=== PATIENT | male | born 1965 ===

== ENCOUNTER 2016-09-07 06:07 | Day surgery (SDC) | payer MEDICARE ==
[2016-09-07 06:34] VITALS: BMI 32.8
[2016-09-07] MEDS ORDERED: Propofol 10 mg/ml Inj (20 ML) ONE ×2 (07:52→10:07)
[2016-09-07] MEDS ORDERED: Lactated Ringer's 500 ML IV ONE (08:06)
--- NOTE | 2016-09-07 08:08 | CP.SDSHP ---
Same Day Surgery H & P - History Proposed Procedure: EGD/ COLONSCOPY Pre-Op Diagnosis: SEE NOTES - Previous Medical/Surgical History Cardiac: Hypertension Neuro: Backaches Misc: Other Pain: 4.Moderate Pain Previous Surgical History: COLON POLYPS - Allergies Allergies: Allergies No Known Allergies Allergy (Verified 09/07/16 08:01) - Physical Exam General Appearance: N Vital Signs: Vital Signs 09/07/16 06:48 Temperature 97.1 F L Pulse Rate 80 Respiratory 16 Rate Blood Pressure 121/77 O2 Sat by Pulse 97 Oximetry Mental Status: Alert & Oriented x3 Neuro: WNL Heart: Other Lungs: WNL GI: Other - {Optional Preform as Required} Breast: WNL Abdomen: Other Rectal: Other Integument: WNL : WNL Ortho: Other ENT: WNL - Impression Pt. Evaluated Today:Candidate for Anesthesia & Procedure: Yes - Date & Time Time: 08:07 Short Stay Discharge - Short Stay Discharge Admitting Diagnosis/Reason for Visit: COLON POLYP / DYSPEPSIA Disposition: HOME/ ROUTINE
[2016-09-07] MEDS ORDERED: Pantoprazole 40 mg EC Tab PO STA (08:13)
[2016-09-07] MEDS ORDERED: Belladonna-Phenobarbital PO STA (08:13)
[2016-09-07 09:30] VITALS: O2SAT 97
[2016-09-07] MEDS ORDERED: Midazolam 2 MG/2 ML VIAL ONE (10:07)
[2016-09-07] MEDS ORDERED: Lactated Ringer's 1,000 ML IV ONE (10:27)
[2016-09-07 15:26] VITALS: TEMP 98.9
[2016-09-08 14:39] VITALS: BP 132/72; PULSE 78; RESP 18
== END 2016-09-07 12:05 | disposition home or self-care (01) ==
LOC: C.ENDO 06:07
PROVIDERS: ATTEND Specialist
DX: K29.00 Acute gastritis without bleeding (principal); K21.0 Gastro-esophageal reflux disease with esophagitis; K44.9 Diaphragmatic hernia without obstruction or gangrene; K57.30 Diverticulosis of large intestine without perforation or abscess without bleeding; K63.89 Other specified diseases of intestine; K64.8 Other hemorrhoids; Z86.010 Personal history of colon polyps
CPT/HCPCS: 43239; 45380; 88305; J2001; J2250; J2704; J2765; J7120

== ENCOUNTER 2016-10-30 23:11 | Inpatient (IN) | payer MEDICARE, OTHER ==
[2016-10-30 23:12] VITALS: BMI 32.8
[2016-10-30] MEDS ORDERED: Sodium Chloride 0.9% 1,000 ML IV ONE (23:55)
--- NOTE | 2016-10-30 23:56 | C.PDOC ---
History Of Present Illness 51 year old male who presents to the ER with a complaint of bilateral leg pain. Patient reports he blacked out at home, he is also complaining of dizziness that he describes as a spinning sensation. Denies fever, chills, or vomiting. Chief Complaint (Nursing): Lower Extremity Problem/Injury History Per: Patient History/Exam Limitations: no limitations Onset/Duration Of Symptoms: Hrs Current Symptoms Are (Timing): Still Present Recent travel outside of the [place]: No Past Medical History Reviewed: Historical Data, Nursing Documentation, Vital Signs Vital Signs: Last Vital Signs Temp 98.7 F 10/30/16 23:18 Pulse 113 H 10/30/16 23:18 Resp 24 10/30/16 23:18 BP 124/78 10/30/16 23:18 Pulse Ox 94 L 10/31/16 02:09 - Medical History PMH: Arthritis, Back Problems, HTN, Hypercholesterolemia Surgical History: Appendectomy - [facility] Procedures ENDOSC POLYPECTOMY OF LG INTEST (09/25/14) Family History: States: [place], CAD, Hypertension - Social History Hx Tobacco Use: No Hx Alcohol Use: No - Immunization History Hx Tetanus Toxoid Vaccination: Yes Hx Influenza Vaccination: Yes Hx Pneumococcal Vaccination: Yes Review Of Systems Constitutional: Negative for: Fever, Chills Gastrointestinal: Negative for: Nausea, Vomiting Neurological: Positive for: Dizziness Physical Exam - Physical Exam Appears: Non-toxic, No Acute Distress, Other (Awake, alert, conscious) Skin: Normal Color, Warm, Dry Head: Atraumatic, Normacephalic Eye(s): bilateral: Normal Inspection, PERRL, EOMI Oral Mucosa: Moist Chest: Symmetrical, No Tenderness Cardiovascular: Rhythm Regular, No Murmur Respiratory: Normal Breath Sounds, No Rales, No Rhonchi, No Wheezing Gastrointestinal/Abdominal: Soft, No Tenderness Neurological/Psych: Oriented x3, Normal Speech, Normal Cognition, Other (No focal deficits) ED Course And Treatment - Laboratory Results Result Diagrams: 10/30/16 23:50 10/30/16 23:50 ECG: Interpreted By Me, Viewed By Me ECG Rhythm: Sinus Rhythm ECG Interpretation: Normal, No Acute Changes Interpretation Of ECG: NSR, normal tracings Rate From EC O2 Sat by Pulse Oximetry: 94 (Room air) Pulse Ox Interpretation: Normal - CT Scan/US CT Head Other Rad Studies (CT/US): Read By Radiologist, Radiology Report Reviewed CT/US Interpretation: EXAM: CT Head Without Intravenous Contrast. CLINICAL HISTORY: 51 years old, male; Pain; Headache. TECHNIQUE: Axial computed tomography images of the head/brain without intravenous contrast. This CT exam. was performed using one or more of the following dose reduction techniques: automated exposure. control, adjustment of the mA and/or kV according to patient size, and/or use of iterative. reconstruction technique. COMPARISON: No relevant prior studies available. FINDINGS: Brain: Minimal atrophy. No intracranial hemorrhage. No mass. No definite edema. Ventricles: No hydrocephalus. Bones/joints: No acute fracture. Soft tissues: Unremarkable. Sinuses: No acute sinusitis. Mastoid air cells: No mastoid effusion. Orbits: Unremarkable as visualized. IMPRESSION: 1. No acute intracranial abnormality. 2. Incidental/non-acute findings are described above. Progress Note: Head CT, EKG, and blood work ordered. Antivert and IV fluids administered. Disposition Discussed With Dr.: Milvia Kennedy Doctor Will See Patient In The: Hospital Counseled Patient/Family Regarding: Diagnosis - Disposition Disposition: HOSPITALIZED Disposition Time: 02:09 Condition: STABLE - POA Present On Arrival: None - Clinical Impression Clinical Impression: Syncope, Renal insufficiency syndrome - Scribe Statement The provider has reviewed the documentation as recorded by the Scribshane Lara All medical record entries made by the Mikaylaibshane were at my direction and personally dictated by me. I have reviewed the chart and agree that the record accurately reflects my personal performance of the history, physical exam, medical decision making, and the department course for this patient. I have also personally directed, reviewed, and agree with the discharge instructions and disposition.
[2016-10-31] MEDS ORDERED: Sodium Chloride 0.9% 1,000 ML ONE
[2016-10-31 00:09] LABS: BASO % 0.3 % (0.0-2.0); EOS % 0.3 % (0.0-4.0); HEMOGLOBIN 13.8 g/dL (12.0-18.0); LYMPH # 2.1 K/uL (1.0-4.3); LYMPH % 12.6 % (20.0-40.0); MEAN CELL VOLUME 88.2 fL (80.0-94.0); MEAN CORPUSCULAR HEMOGLOBIN 28.5 pg (27.0-31.0); MEAN CORPUSCULAR HGB CONC 32.4 g/dL (33.0-37.0); MEAN PLATELET VOLUME 8.1 fL (7.2-11.7); MONO # 1.8 K/uL (0.0-0.8); MONO % 10.8 % (0.0-10.0); NEUT # 12.5 K/uL (1.8-7.0); NRBC % 0.1 % (0.0-2.0); RBC 4.82 Mil/uL (4.40-5.90); RED CELL DISTRIBUTION WIDTH 13.9 % (11.5-14.5); WHITE BLOOD COUNT 16.4 K/uL (4.8-10.8)
[2016-10-31 00:18] LABS: ALB/GLOB RATIO 1.1 (1.0-2.1); ALBUMIN 4.3 g/dL (3.5-5.0); ALT/SGPT 37 U/L (21-72); AST/SGOT 34 U/L (17-59); BLOOD UREA NITROGEN 47 mg/dL (9-20); CALCIUM 8.6 mg/dl (8.6-10.4); GFR AFRICAN-AMERICAN 13; GFR NON-AFRICAN AMERICAN 10
--- NOTE | 2016-10-31 01:16 | CT ---
EXAM: CT Head Without Intravenous Contrast CLINICAL HISTORY: 51 years old, male; Pain; Headache TECHNIQUE: Axial computed tomography images of the head/brain without intravenous contrast. This CT exam was performed using one or more of the following dose reduction techniques: automated exposure control, adjustment of the mA and/or kV according to patient size, and/or use of iterative reconstruction technique. COMPARISON: No relevant prior studies available. FINDINGS: Brain: Minimal atrophy. No intracranial hemorrhage. No mass. No definite edema. Ventricles: No hydrocephalus. Bones/joints: No acute fracture. Soft tissues: Unremarkable. Sinuses: No acute sinusitis. Mastoid air cells: No mastoid effusion. Orbits: Unremarkable as visualized. IMPRESSION: 1. No acute intracranial abnormality. 2. Incidental/non-acute findings are described above.
[2016-10-31] MEDS ORDERED: Morphine 60 mg SR Tab PO PRN ×2 (03:04→07:14)
[2016-10-31 07:26] LABS: CK-MB 2.35 ng/mL (0.0-3.38)
[2016-10-31] MEDS ORDERED: Morphine 30 mg SR Tab PO ONE (07:30)
[2016-10-31] MEDS ORDERED: Naproxen 550 mg Tab PO SCH (10:00)
[2016-10-31] MEDS ORDERED: Home Med 1 UNIT (Lubiprostone [Amitiza] 24 MCG) PO SCH ×2 (10:00)
[2016-10-31] MEDS ORDERED: Home Med 1 UNIT (Ranitidine Hcl [Ranitidine Hcl] 150 MG) PO SCH (10:00)
[2016-10-31] MEDS ORDERED: SULINDAC 200 MG PO SCH (10:00)
[2016-10-31] MEDS ORDERED: Enoxaparin 40 mg Syringe SC SCH (10:00)
[2016-10-31] MEDS: Pantoprazole 40 mg EC Tab PO SCH (10:30)
[2016-10-31] MEDS: Sodium Chloride 0.9% 1,000 ML IV SCH ×2 (11:38→22:15)
--- NOTE | 2016-10-31 12:30 | CP.PCM.HP ---
Past Patient History - Past Medical History & Family History Past Medical History?: Yes - Past Social History Smoking Status: Never Smoked - CARDIAC Hx Hypercholesterolemia: Yes Hx Hypertension: Yes - PULMONARY Hx Respiratory Disorders: No - NEUROLOGICAL Hx Neurological Disorder: No - HEENT Hx HEENT Problems: No - RENAL Hx Chronic Kidney Disease: No - ENDOCRINE/METABOLIC Hx Endocrine Disorders: No - HEMATOLOGICAL/ONCOLOGICAL Hx Blood Disorders: Yes Hx Hepatitis C: Yes - INTEGUMENTARY Hx Dermatological Problems: No - MUSCULOSKELETAL/RHEUMATOLOGICAL Hx Falls: Yes - GASTROINTESTINAL Hx Gastrointestinal Disorders: Yes Hx Gastroesophageal Reflux: Yes Hx Hemorrhoids: Yes - GENITOURINARY/GYNECOLOGICAL Hx Genitourinary Disorders: No - PSYCHIATRIC Hx Substance Use: No - SURGICAL HISTORY Hx Appendectomy: Yes - ANESTHESIA Hx Anesthesia: Yes Hx Anesthesia Reactions: No Hx Malignant Hyperthermia: No Meds Allergies/Adverse Reactions: Allergies Allergy/AdvReac Type Severity Reaction Status Date / Time No Known Allergies Allergy Verified 10/30/16 23:22 Physical Exam - Constitutional Appears: Well - Head Exam Head Exam: ATRAUMATIC, NORMAL INSPECTION, NORMOCEPHALIC - Eye Exam Eye Exam: EOMI, Normal appearance, PERRL Pupil Exam: NORMAL ACCOMODATION, PERRL - ENT Exam ENT Exam: Mucous Membranes Moist, Normal Exam - Neck Exam Neck exam: Positive for: Normal Inspection - Respiratory Exam Respiratory Exam: Decreased Breath Sounds - Cardiovascular Exam Cardiovascular Exam: REGULAR RHYTHM, +S1, +S2 - GI/Abdominal Exam GI & Abdominal Exam: Diminished Bowel Sounds, Soft - Rectal Exam Rectal Exam: Deferred Results - Vital Signs Recent Vital Signs: Last Vital Signs Temp 97.5 F L 10/31/16 08:46 Pulse 86 10/31/16 08:46 Resp 18 10/31/16 08:46 BP 115/70 10/31/16 08:46 Pulse Ox 98 10/31/16 08:46 - Labs Result Diagrams: 10/30/16 23:50 10/30/16 23:50 Labs: Laboratory Results - last 24 hr 10/31/16 06:54 Total Creatine Kinase 151 CK-MB (Mass) 2.35 Troponin I, Quant < 0.0120
--- NOTE | 2016-10-31 12:58 | CARD ---
APPROVED REPORT EKG Measurement Heart [id number] ME [id number] [id number] <Conclusion> Normal sinus rhythm Normal ECG
[2016-10-31] MEDS ORDERED: Morphine 15 mg Immediate Release Tab PO PRN (16:00)
[2016-10-31] MEDS ORDERED: Naproxen 550 mg Tab PO PRN (16:00)
--- NOTE | 2016-10-31 16:51 | CP.PCM.CON ---
History of Present Illness - History of Present Illness History of Present Illness: CC: dizziness and LE weakness and chest discomfort HPI:51-year-old male with past medical history significant for traumatic injury to the back while he was working in [place] he subsequently had a traumatic injury to the cervical spine and has been on disability since then this was back in 1998 history of ulcerative colitis followed by GI. Patient presented with complains of symptoms of persistent recurrent dizziness and lower extremity weakness for a week prior to presentation he had a syncopal episode a day before this presentation. He denied having any chest pain shortness of breath palpitations dizziness. He was noted to have acute renal failure. At baseline he is fairly active denies any ischemic symptoms. He also complained of having a vague chest wall discomfort accompanied with mild shortness of breath and lower extremity weakness. Chest pain nonspecific in nature. Review of Systems - Review of Systems All systems: reviewed and no additional remarkable complaints except - Constitutional Constitutional: As Per HPI, Malaise - EENT Eyes: As Per HPI Ears: As Per HPI Nose/Mouth/Throat: As Per HPI - Cardiovascular Cardiovascular: Lightheadedness - Respiratory Respiratory: As Per HPI - Gastrointestinal Gastrointestinal: As Per HPI - Integumentary Integumentary: As Per HPI - Neurological Neurological: Weakness - Psychiatric Psychiatric: As Per HPI - Endocrine Endocrine: As Per HPI - Hematologic/Lymphatic Hematologic: As Per HPI Past Patient History - Past Medical History & Family History Past Medical History?: Yes Past Family History: Reviewed and not pertinent Pertinent Family History: +ve for HTN - Dad - Past Social History Smoking Status: Never Smoked - CARDIAC Hx Cardiac Disorders: No Hx Hypercholesterolemia: Yes Hx Hypertension: Yes - PULMONARY Hx Respiratory Disorders: No - NEUROLOGICAL Hx Neurological Disorder: No - HEENT Hx HEENT Problems: No - RENAL Hx Chronic Kidney Disease: No - ENDOCRINE/METABOLIC Hx Endocrine Disorders: No - HEMATOLOGICAL/ONCOLOGICAL Hx Blood Disorders: Yes Hx Hepatitis C: Yes - INTEGUMENTARY Hx Dermatological Problems: No - MUSCULOSKELETAL/RHEUMATOLOGICAL Hx Arthritis: Yes - GASTROINTESTINAL Hx Gastrointestinal Disorders: Yes Hx Gastroesophageal Reflux: Yes Hx Hemorrhoids: Yes - GENITOURINARY/GYNECOLOGICAL Hx Genitourinary Disorders: No - PSYCHIATRIC Hx Substance Use: No - SURGICAL HISTORY Hx Appendectomy: Yes - ANESTHESIA Hx Anesthesia: Yes Hx Anesthesia Reactions: No Hx Malignant Hyperthermia: No Meds Allergies/Adverse Reactions: Allergies Allergy/AdvReac Type Severity Reaction Status Date / Time No Known Allergies Allergy Verified 10/30/16 23:22 - Medications Medications: Current Medications Alprazolam (Xanax) 1 mg PO BID [facility] Last Admin: 10/31/16 10:30 Dose: 1 mg Aspirin (Aspirin Chewable) 81 mg PO DAILY [facility] Last Admin: 10/31/16 10:30 Dose: 81 mg Enoxaparin Sodium (Lovenox) 30 mg SC DAILY [facility] Sodium Chloride (Sodium Chloride 0.9%) 1,000 mls @ 100 mls/hr IV .Q10H [facility] Last Admin: 10/31/16 11:38 Dose: 100 mls/hr Lisinopril (Zestril) 10 mg PO DAILY [facility] Last Admin: 10/31/16 10:30 Dose: 10 mg Morphine Sulfate (Ms Contin) 30 mg PO Q8H PRN PRN Reason: Pain, severe (8-10) Naproxen (Anaprox Ds) 550 mg PO BID PRN PRN Reason: Pain, severe (8-10) Pantoprazole Sodium (Protonix Ec Tab) 40 mg PO DAILY [facility] Last Admin: 10/31/16 10:30 Dose: 40 mg Physical Exam - Constitutional Appears: Well - Head Exam Head Exam: ATRAUMATIC, NORMAL INSPECTION, NORMOCEPHALIC - Eye Exam Eye Exam: EOMI, Normal appearance, PERRL Pupil Exam: NORMAL ACCOMODATION, PERRL - ENT Exam ENT Exam: Mucous Membranes Moist, Normal Exam - Neck Exam Neck exam: Positive for: Normal Inspection - Respiratory Exam Respiratory Exam: Clear to Auscultation Bilateral, NORMAL BREATHING PATTERN - Cardiovascular Exam Cardiovascular Exam: REGULAR RHYTHM, +S1, +S2, Systolic Murmur - GI/Abdominal Exam GI & Abdominal Exam: Normal Bowel Sounds, Soft. absent: Tenderness - Rectal Exam Rectal Exam: Deferred - Extremities Exam Extremities exam: Positive for: normal inspection - Back Exam Back exam: NORMAL INSPECTION - Neurological Exam Neurological exam: Alert, CN II-XII Intact, Normal Gait, Oriented x3, Reflexes Normal - Psychiatric Exam Psychiatric exam: Normal Affect, Normal Mood - Skin Skin Exam: Dry, Intact, Normal Color, Warm Results - Vital Signs Recent Vital Signs: Last Vital Signs Temp 97.8 F 10/31/16 15:57 Pulse 78 10/31/16 15:57 Resp 18 10/31/16 15:57 BP 117/72 10/31/16 15:57 Pulse Ox 98 10/31/16 15:57 - Labs Result Diagrams: 11/01/16 06:43 11/01/16 06:43 Labs: Laboratory Results - last 24 hr 10/31/16 06:54 Total Creatine Kinase 151 CK-MB (Mass) 2.35 Troponin I, Quant < 0.0120 Assessment & Plan (1) Syncope Assessment and Plan: etiology ? 2' to preload dependency check IVF hydration and orthostatics check echocardiogram monitor on telemetry Status: Acute (2) Chest discomfort Assessment and Plan: will need further evaluation post echo MUKUND telmetry Status: Acute (3) Renal insufficiency syndrome Assessment and Plan: hold ACEi IVF hydration nephro eval Status: Acute
[2016-10-31 17:55] LABS: CK-MB 1.49 ng/mL (0.0-3.38)
[2016-10-31] MEDS: Enoxaparin 30 mg Syringe SC SCH (18:20)
[2016-10-31] MEDS: Naproxen 550 mg Tab PO PRN (18:20)
[2016-11-01 07:12] LABS: ALBUMIN 3.4 g/dL (3.5-5.0)
[2016-11-01 07:14] LABS: BASO % 0.2 % (0.0-2.0); EOS # 0.1 K/uL (0.0-0.7); EOS % 0.4 % (0.0-4.0); HEMOGLOBIN 12.7 g/dL (12.0-18.0); LYMPH % 14.2 % (20.0-40.0); MEAN CELL VOLUME 89.4 fL (80.0-94.0); MEAN CORPUSCULAR HEMOGLOBIN 28.3 pg (27.0-31.0); MEAN CORPUSCULAR HGB CONC 31.7 g/dL (33.0-37.0); MEAN PLATELET VOLUME 8.1 fL (7.2-11.7); MONO # 1.5 K/uL (0.0-0.8); MONO % 10.6 % (0.0-10.0); NEUT # 10.3 K/uL (1.8-7.0); NEUT % 74.6 % (50.0-75.0); RBC 4.49 Mil/uL (4.40-5.90); RED CELL DISTRIBUTION WIDTH 14.2 % (11.5-14.5); WHITE BLOOD COUNT 13.8 K/uL (4.8-10.8)
[2016-11-01 07:16] LABS: CALCIUM 8.4 mg/dl (8.6-10.4)
[2016-11-01] MEDS: Enoxaparin 30 mg Syringe SC SCH (09:00)
[2016-11-01] MEDS: Pantoprazole 40 mg EC Tab PO SCH (09:01)
[2016-11-01] MEDS: Sodium Chloride 0.9% 1,000 ML IV SCH ×3 (09:17→22:25)
--- NOTE | 2016-11-01 09:56 | CT ---
PROCEDURE: CT Abdomen and Pelvis without intravenous contrast HISTORY: vomitting COMPARISON: Prior abdomen pelvis CT 09/25/2014. TECHNIQUE: Technique. Contrast Dose: 0 cc Radiation dose: Total exam DLP = 1027 mGy-cm. This CT exam was performed using one or more of the following dose reduction techniques: Automated exposure control, adjustment of the mA and/or kV according to patient size, and/or use of iterative reconstruction technique. FINDINGS: LOWER THORAX: Mild cardiomegaly and an elevated right hemidiaphragm. LIVER: No focal lesion identified on this unenhanced examination. GALLBLADDER AND BILE DUCTS: Unremarkable. PANCREAS: Unremarkable. No gross lesion or ductal dilatation. SPLEEN: Unremarkable. ADRENALS: Unremarkable. No mass. KIDNEYS AND URETERS: Unremarkable. No hydronephrosis. No significant perinephric reaction bilaterally. VASCULATURE: Unremarkable. No aortic aneurysm. BOWEL: Seven appears largely collapsed. Mild to moderate fecal loading is seen throughout the colon and thoracic greater than the left. Limited sigmoid diverticular change are appreciate which appear nonacute. Unremarkable. No obstruction. No gross mural thickening. APPENDIX: Unremarkable. Normal appendix. PERITONEUM: Unremarkable. No free fluid. No free air. LYMPH NODES: Unremarkable. No enlarged lymph nodes. BLADDER: Unremarkable. REPRODUCTIVE: Unremarkable. BONES: Advanced degenerative disease L4-5. OTHER FINDINGS: Trace gas identified in the subcutaneous fat and fat of the right flank anterior abdominal wall. Consider recent instrumentation. IMPRESSION: Unenhanced and pelvis CT fails demonstrate definitive acute abdominal findings including bilateral hydronephrosis or significant perinephric reaction. [id number] fecal loading is seen throughout the large bowel without bowel obstruction evident.
[2016-11-01] MEDS ORDERED: Enoxaparin 30 mg Syringe SC SCH (10:00)
[2016-11-01] MEDS ORDERED: Bisacodyl 5mg EC Tab PO ONE (13:08)
--- NOTE | 2016-11-01 16:16 | VASCLAB ---
PROCEDURE: Lower Extremity Venous Duplex Exam. HISTORY: Leg pain PRIORS: None. TECHNIQUE: Bilateral common femoral, femoral, popliteal and posterior tibial, peroneal and great saphenous veins were evaluated. Flow was assessed with color Doppler, compressibility, assessment of phasic flow and augmentation response. Report prepared by HANNAH Donahue, RVT FINDINGS: RIGHT: 1. Common Femoral Vein: 1.1. Compressibility - Fully compressible: Thrombus - None : Flow - Phasic: Augmentation -Normal: Reflux - None. 2. Femoral Vein: 2.1. Compressibility - Fully compressible: Thrombus - None : Flow - Phasic: Augmentation -Normal: Reflux - None. 3. Popliteal Vein: 3.1. Compressibility - Fully compressible: Thrombus - None : Flow - Phasic: Augmentation -Normal: Reflux - None. 4. Posterior Tibial Vein: 4.1. Compressibility - Fully compressible: Thrombus - None: Flow - Phasic: Augmentation -Normal: Reflux - None. 5. Peroneal Vein: 5.1. Compressibility - Fully compressible: Thrombus - None: Flow - Phasic: Augmentation -Normal: Reflux - None. 6. Great Saphenous Vein: 6.1. Compressibility - Fully compressible: Thrombus - None: Flow - Phasic: Augmentation - Normal: Reflux - None. LEFT: 1. Common Femoral Vein: 1.1. Compressibility - Fully compressible: Thrombus - None: Flow - Phasic: Augmentation -Normal: Reflux - None. 2. Femoral Vein: 2.1. Compressibility - Fully compressible: Thrombus - None: Flow - Phasic: Augmentation -Normal: Reflux - None. 3. Popliteal Vein: 3.1. Compressibility - Fully compressible: Thrombus - None : Flow - Phasic: Augmentation -Normal: Reflux - None. 4. Posterior Tibial Vein: 4.1. Compressibility - Fully compressible: Thrombus - None: Flow - Phasic: Augmentation -Normal: Reflux - None. 5. Peroneal Vein: 5.1. Compressibility - Fully compressible: Thrombus - None: Flow - Phasic: Augmentation -Normal: Reflux - None. 6. Great Saphenous Vein: 6.1. Compressibility - Fully compressible: Thrombus - None: Flow - Phasic: Augmentation - Normal: Reflux - None. OTHER FINDINGS: Right: None significant. Left: None significant. IMPRESSION: Right: No evidence of deep or superficial vein thrombosis of the right lower extremity. Normal valve function noted of the right side. Left: No evidence of deep or superficial vein thrombosis of the left lower extremity. Normal valve function noted of the left side.
--- NOTE | 2016-11-01 18:07 | CP.PCM.PN ---
Subjective - Date & Time of Evaluation Date of Evaluation: 11/01/16 Time of Evaluation: 15:20 - Subjective Subjective: clinically same Objective - Vital Signs/Intake and Output Vital Signs (last 24 hours): Temp Pulse Resp BP Pulse Ox 98.3 F 69 18 122/67 96 11/01/16 16:00 11/01/16 16:00 11/01/16 16:00 11/01/16 16:00 11/01/16 16:00 Intake and Output: 11/01/16 11/01/16 06:59 18:59 Intake Total 2020 1850 Output Total 1800 150 Balance 220 1700 - Medications Medications: Current Medications Alprazolam (Xanax) 0.5 mg PO TID PRN PRN Reason: Anxiety Aspirin (Aspirin Chewable) 81 mg PO DAILY [facility] Last Admin: 11/01/16 09:01 Dose: Not Given Enoxaparin Sodium (Lovenox) 30 mg SC DAILY [facility] Last Admin: 11/01/16 09:00 Dose: 30 mg Famotidine (Pepcid) 20 mg IVP DAILY [facility] Last Admin: 11/01/16 13:05 Dose: 20 mg Sodium Chloride (Sodium Chloride 0.9%) 1,000 mls @ 100 mls/hr IV .Q10H [facility] Last Admin: 11/01/16 09:17 Dose: 100 mls/hr Lisinopril (Zestril) 10 mg PO DAILY [facility] Last Admin: 11/01/16 09:02 Dose: Not Given Metoclopramide HCl (Reglan) 5 mg IVP Q6 [facility] Morphine Sulfate (Morphine Immediate Release Tab) 30 mg PO Q8H PRN PRN Reason: Pain, severe (8-10) Naproxen (Anaprox Ds) 550 mg PO BID PRN PRN Reason: Pain, moderate (4-7) Last Admin: 10/31/16 18:20 Dose: 550 mg Pantoprazole Sodium (Protonix Ec Tab) 40 mg PO DAILY [facility] Last Admin: 11/01/16 09:01 Dose: Not Given - Labs Labs: 11/01/16 06:43 11/01/16 06:43 - Constitutional Appears: Well - Head Exam Head Exam: ATRAUMATIC, NORMAL INSPECTION, NORMOCEPHALIC - Eye Exam Eye Exam: EOMI, Normal appearance, PERRL Pupil Exam: NORMAL ACCOMODATION, PERRL - ENT Exam ENT Exam: Mucous Membranes Moist, Normal Exam - Neck Exam Neck Exam: Full ROM, Normal Inspection. absent: Lymphadenopathy - Respiratory Exam Respiratory Exam: Decreased Breath Sounds - Cardiovascular Exam Cardiovascular Exam: REGULAR RHYTHM, +S1, +S2 - GI/Abdominal Exam GI & Abdominal Exam: Soft, Diminished Bowel Sounds - Rectal Exam Rectal Exam: Deferred
[2016-11-01] MEDS: Naproxen 550 mg Tab PO PRN (18:14)
--- NOTE | 2016-11-01 19:13 | PN ---
DATE: 10/31/2016 LOCATION: 3, bed 10. SUBJECTIVE: This is a 51-year-old male seen and examined in rounds for GI consultation on 10/31/2016 as requested by the admitting MD, reexamined again today with a complaint of abdominal pain, dyspepsia, right lower quadrant as well as right lower extremities pain on and off. The entire chart is reviewed including but not limited to the most recent lab and radiology study results, current and previous medication list, current and previous medical events. Today, white blood cells 13.8 but normal hemoglobin and hematocrit with BUN 30 but normal creatinine with low calcium of 8.4. The patient had abdominal and pelvic CAT scan as directed by myself today, which was reported to be positive for bilateral hydronephrosis, but [id number] fecal impaction throughout the large bowel without evidence of obstruction. The patient also had CAT scan of the head, which reported to be within normal limit. PHYSICAL EXAMINATION: GENERAL: A 51-year-old male, appeared to be awake, alert, oriented. VITAL SIGNS: Afebrile with pulse of 74, respiratory rate 20 to 22, his blood pressure 120/68. HEENT: Showed pale, dry oral mucous membrane. Nonicteric sclerae. LUNG: Few scattered crepitation. Decreased air entry at bases. HEART: Positive S1 and S2. ABDOMEN: Soft, bowel sounds are present with generalized tenderness. No mass or organomegaly. No rebound tenderness or guarding. RECTAL: Positive stool, vault is empty. EXTREMITIES: With reported right *------* mild muscular tenderness. IMPRESSION: 1. Re-exacerbation of peptic ulcer disease. 2. Known history of osteoarthritis, chronic lower back pain syndrome, hyperlipidemia and hypertension by history. 3. Fecal impaction. 4. Status post vasectomy by history. SUGGESTIONS: 1. Continue current management. 2. Reglan IV due to the patient episodes of nausea and dyspepsia. 3. Upper endoscopy at a.m. 4. Consult *------* 5. Dulcolax and/or citrate of magnesium. 4. Endoscopic evaluation of the lower GI tract on as needed. 5. Further recommendation to follow. María Gregorio MD
--- NOTE | 2016-11-02 00:03 | CP.PCM.PN ---
Subjective - Date & Time of Evaluation Date of Evaluation: 11/01/16 Time of Evaluation: 16:00 - Subjective Subjective: dizziness mildly improving echo pending LE venous duplex -ve renal function improving Objective - Vital Signs/Intake and Output Vital Signs (last 24 hours): Temp Pulse Resp BP Pulse Ox 98.3 F 69 18 122/67 96 11/01/16 16:00 11/01/16 16:00 11/01/16 16:00 11/01/16 16:00 11/01/16 16:00 Intake and Output: 11/01/16 11/02/16 18:59 06:59 Intake Total 1850 Output Total 150 Balance 1700 - Medications Medications: Current Medications Alprazolam (Xanax) 0.5 mg PO TID PRN PRN Reason: Anxiety Aspirin (Aspirin Chewable) 81 mg PO DAILY [facility] Last Admin: 11/01/16 09:01 Dose: Not Given Enoxaparin Sodium (Lovenox) 30 mg SC DAILY [facility] Last Admin: 11/01/16 09:00 Dose: 30 mg Famotidine (Pepcid) 20 mg IVP DAILY [facility] Last Admin: 11/01/16 13:05 Dose: 20 mg Sodium Chloride (Sodium Chloride 0.9%) 1,000 mls @ 100 mls/hr IV .Q10H [facility] Last Admin: 11/01/16 22:25 Dose: 100 mls/hr Lisinopril (Zestril) 10 mg PO DAILY [facility] Last Admin: 11/01/16 09:02 Dose: Not Given Metoclopramide HCl (Reglan) 5 mg IVP Q6 [facility] Last Admin: 11/01/16 18:11 Dose: 5 mg Morphine Sulfate (Morphine Immediate Release Tab) 30 mg PO Q8H PRN PRN Reason: Pain, severe (8-10) Naproxen (Anaprox Ds) 550 mg PO BID PRN PRN Reason: Pain, moderate (4-7) Last Admin: 11/01/16 18:14 Dose: 550 mg Pantoprazole Sodium (Protonix Ec Tab) 40 mg PO DAILY [facility] Last Admin: 11/01/16 09:01 Dose: Not Given - Labs Labs: 11/01/16 06:43 11/01/16 06:43 - Constitutional Appears: Well - Head Exam Head Exam: ATRAUMATIC, NORMAL INSPECTION, NORMOCEPHALIC - Eye Exam Eye Exam: EOMI, Normal appearance, PERRL Pupil Exam: NORMAL ACCOMODATION, PERRL - ENT Exam ENT Exam: Mucous Membranes Moist, Normal Exam - Neck Exam Neck Exam: Full ROM, Normal Inspection. absent: Lymphadenopathy - Respiratory Exam Respiratory Exam: Clear to Ausculation Bilateral, NORMAL BREATHING PATTERN - Cardiovascular Exam Cardiovascular Exam: REGULAR RHYTHM, +S1, +S2, Murmur - GI/Abdominal Exam GI & Abdominal Exam: Soft, Normal Bowel Sounds. absent: Tenderness - Extremities Exam Extremities Exam: Full ROM, Normal Capillary Refill, Normal Inspection. absent : Joint Swelling, Pedal Edema - Back Exam Back Exam: NORMAL INSPECTION - Neurological Exam Neurological Exam: Alert, Awake, CN II-XII Intact, Normal Gait, Oriented x3 - Psychiatric Exam Psychiatric exam: Normal Affect, Normal Mood - Skin Skin Exam: Dry, Intact, Normal Color, Warm Assessment and Plan (1) Syncope Assessment & Plan: etiology ? 2' to dehydration and preload dependency cont with IVF hydration echo pending will consider ischemic w/u depending on results of echo Status: Acute (2) Chest discomfort Assessment & Plan: plan for stress test monitor on telemetry etiology most likely non-cardiac Status: Acute (3) Renal insufficiency syndrome Assessment & Plan: improving most likely prerenal cont with IVF hydration Status: Acute
[2016-11-02] MEDS: Sodium Chloride 0.9% 1,000 ML IV SCH (02:19)
[2016-11-02 07:23] LABS: BASO % 0.3 % (0.0-2.0); EOS # 0.1 K/uL (0.0-0.7); EOS % 0.6 % (0.0-4.0); HEMOGLOBIN 12.9 g/dL (12.0-18.0); LYMPH # 1.9 K/uL (1.0-4.3); LYMPH % 18.9 % (20.0-40.0); MEAN CELL VOLUME 87.6 fL (80.0-94.0); MEAN CORPUSCULAR HEMOGLOBIN 29.5 pg (27.0-31.0); MEAN CORPUSCULAR HGB CONC 33.7 g/dL (33.0-37.0); MEAN PLATELET VOLUME 7.7 fL (7.2-11.7); MONO # 0.9 K/uL (0.0-0.8); MONO % 8.8 % (0.0-10.0); NEUT % 71.4 % (50.0-75.0); RBC 4.38 Mil/uL (4.40-5.90); RED CELL DISTRIBUTION WIDTH 13.9 % (11.5-14.5); WHITE BLOOD COUNT 9.8 K/uL (4.8-10.8)
[2016-11-02 07:37] LABS: ALBUMIN 3.4 g/dL (3.5-5.0)
[2016-11-02 07:40] LABS: ALB/GLOB RATIO 1.2 (1.0-2.1); ALT/SGPT 26 U/L (21-72); AST/SGOT 12 U/L (17-59); BLOOD UREA NITROGEN 16 mg/dL (9-20); GFR AFRICAN-AMERICAN > 60; GFR NON-AFRICAN AMERICAN > 60
[2016-11-02 07:41] LABS: CALCIUM 8.6 mg/dl (8.6-10.4)
--- NOTE | 2016-11-02 08:05 | CON ---
DATE: 10/31/2016 HISTORY OF PRESENT ILLNESS: I was called for a GI consultation by the admitting medical team. The patient is seen and fully examined on 10/31/2016 as requested by the admitting medical staff as well as the patient himself as the patient had been my private patient for several years. The entire chart is reviewed including, but not limited to the most recent lab and radiologist's results. Current and previous medication list and current and previous medical events, allergies to the medications list as well as all the available current and previous medical records. Case discussed with the staff at length. This is a 51-year-old man known case for me from previous admissions as well as office visits for several years. He was admitted to the hospital through the emergency room with a complaint of generalized weakness and malaise, dizziness with bilateral lower extremities pain and tingling associated with dyspepsia, nausea, and generalized weakness as well as recent history of change of bowel movement habit of unclear etiology. PAST MEDICAL HISTORY: Including but not limited to: 1. Hypertension. 2. Chronic lower back pain syndrome. 3. Hyperlipidemia. 4. Osteoarthritis. 5. Peptic ulcer disease. 6. Status post appendectomy. 7. Known history of colon polyp removed by polypectomy around two years ago. FAMILY HISTORY: Unrelated specific GI disorder. ALLERGIES TO MEDICATIONS: UNCLEAR. CURRENT MEDICATIONS: Medication list was reviewed. SOCIAL HISTORY: Denies any recent history of cigarette smoking or alcohol intake. LABORATORY DATA: After being admitted, initially the patient was found to have increased BUN of 47, creatinine to 5.8 with low CO2 contents of 21, indicative of metabolic acidosis with leukocytosis of 16.4. The patient also has had CAT scan of the head with no acute intracranial abnormalities. PHYSICAL EXAMINATION: GENERAL: A 51 years old male appear to be awake, alert, and oriented complaining of midepigastric and midabdominal pain on and off with mild nausea and dyspepsia as well as complaining of lower extremities pain crampy in nature. VITAL SIGNS: The patient is afebrile with pulse of 102, respiratory rate 20-24 with blood pressure of 130/76. HEENT: Pale dry oral mucous membrane. Nonicteric sclerae. LYMPH NODES: No lymphadenitis or lymphadenopathy. LUNGS: Few scattered crepitation, decreased air entry at bases. HEART: S1 and S2 with increased rate. ABDOMEN: Soft, mildly distended, mildly obese with midepigastric as well as midabdominal line tenderness. No masses or organomegaly. No rebound, tenderness, or guarding. RECTAL: Positive stool. The patient was guaiac positive stool. EXTREMITIES: Mild muscular tightness and evidence of myositis especially in the right lower extremities, with back of the thigh as well as right calf area. No clubbing, cyanosis, or edema. NEUROLOGIC: No reported neurological deficits, sensory, or motor. IMPRESSION: Near syncopal episode of unclear etiology that could be secondary to poorly controlled hyperlipidemia. SUGGESTION: 1. Agree with your plan. 2. Cancer markers including CEA and PSA. 3. Due to the patient evidence of episodes of acute renal failure. 4. Pending on the above lab results, the patient initially will need upper endoscopy due to his clinical presentation. If that is normal then colonoscopy to be scheduled after anticoagulation. 5. Due to the patient's renal insufficiency, nephrology consultation as well as ultrasound of the upper and lower abdomen should be kept in mind. Thank you for letting me to participate in your patient's case management. María Gregorio MD
[2016-11-02] MEDS ORDERED: Propofol 10 mg/ml Inj (20 ML) ONE (09:36)
[2016-11-02] MEDS: Enoxaparin 30 mg Syringe SC SCH (10:50)
[2016-11-02] MEDS: Pantoprazole 40 mg EC Tab PO SCH (10:50)
--- NOTE | 2016-11-02 14:57 | CARD ---
APPROVED REPORT EXAM: Two-dimensional and M-mode echocardiogram with Doppler and color Doppler. Other Information Quality : GoodRhythm : NSR INDICATION Abnormal EKG/Arrhythmia Chest Pain Syncope RISK FACTORS Hypertension Hyperlipidemia M-Mode DIMENSIONS RVDd1.98 (2.1-3.2cm)Left Atrium (MM)4.08 (2.5-4.0cm) IVSd0.91 (0.7-1.1cm)Aortic Root3.46 (2.2-3.7cm) LVDd5.98 (4.0-5.6cm)Aortic Cusp Exc.2.23 (1.5-2.0cm) PWd0.82 (0.7-1.1cm)FS (%) 41 % LVDs3.54 (2.0-3.8cm)LVEF (%)71 (>50%) Mitral Valve MV E Xusjcvfk64.5cm/sMV A Ggkntrls00.3cm/sE/A ratio1.8 TDI E/Lateral E'0.0E/Medial E'0.0 Tricuspid Valve TR Peak Amthchjs036zd/sTR Peak Gr.[id number] LEFT VENTRICLE The left ventricle is normal size. There is normal left ventricular wall thickness. The left ventricular function is normal. The left ventricular ejection fraction is within the normal range. There is normal LV segmental wall motion. The left ventricular diastolic function is normal. RIGHT VENTRICLE The right ventricle is normal size. ATRIA The left atrium is borderline dilated. The right atrium size is normal. AORTIC VALVE The aortic valve is normal in structure. MITRAL VALVE The mitral valve is normal in structure. TRICUSPID VALVE There is trace to mild tricuspid regurgitation. <Conclusion> Normal LV systolic function. Mild TR. Borderline dilated LA. Normal pericaium.
[2016-11-02 16:21] VITALS: BP 135/80; PULSE 80; RESP 20; TEMP 97.8; O2SAT 98
[2016-11-02] MEDS ORDERED: Sucralfate 1 gm/10 ml Oral Susp UD PO SCH (16:30)
== END 2016-11-02 18:16 | disposition home or self-care (01) | DRG 684 ==
LOC: C.ER 23:11 → C.6T 10-31 02:10
PROVIDERS: ADMIT Internal Medicine Nephrology; ATTEND Internal Medicine Nephrology
PROC: 0DB68ZX Excision of Stomach, Via Natural or Artificial Opening Endoscopic, Diagnostic (ICD-10-PCS; principal; 2016-11-02 09:41)
DX: N17.9 Acute kidney failure, unspecified (principal); I10 Essential (primary) hypertension; N13.30 Unspecified hydronephrosis; R55 Syncope and collapse; E78.00 Pure hypercholesterolemia, unspecified; M54.5 Low back pain; G89.29 Other chronic pain; E78.5 Hyperlipidemia, unspecified; M19.90 Unspecified osteoarthritis, unspecified site; I25.10 Atherosclerotic heart disease of native coronary artery without angina pectoris; Z82.49 Family history of ischemic heart disease and other diseases of the circulatory system; Z86.010 Personal history of colon polyps; E86.0 Dehydration; R07.89 Other chest pain; K20.9 Esophagitis, unspecified; K44.9 Diaphragmatic hernia without obstruction or gangrene; K29.50 Unspecified chronic gastritis without bleeding

== ENCOUNTER 2017-08-20 16:24 | Inpatient (IN) | payer MEDICARE, OTHER ==
[2017-08-20 16:24] VITALS: BMI 32.8
[2017-08-20] MEDS ORDERED: Sodium Chloride 0.9% 1,000 ML IV ONE (19:35)
[2017-08-20] MEDS ORDERED: Sodium Chloride 0.9% 1,000 ML ONE (19:36)
[2017-08-20 19:57] LABS: BASO % 0.2 % (0.0-2.0); EOS # 0.1 K/uL (0.0-0.7); EOS % 1.1 % (0.0-4.0); HEMOGLOBIN 13.9 g/dL (12.0-18.0); LYMPH # 1.5 K/uL (1.0-4.3); LYMPH % 14.6 % (20.0-40.0); MEAN CELL VOLUME 84.8 fL (80.0-94.0); MEAN CORPUSCULAR HEMOGLOBIN 28.6 pg (27.0-31.0); MEAN CORPUSCULAR HGB CONC 33.7 g/dL (33.0-37.0); MEAN PLATELET VOLUME 8.3 fL (7.2-11.7); MONO # 1.9 K/uL (0.0-0.8); MONO % 18.4 % (0.0-10.0); NEUT # 6.7 K/uL (1.8-7.0); NEUT % 65.7 % (50.0-75.0); RBC 4.85 Mil/uL (4.40-5.90); RED CELL DISTRIBUTION WIDTH 14.3 % (11.5-14.5); WHITE BLOOD COUNT 10.1 K/uL (4.8-10.8)
[2017-08-20 20:04] LABS: SQUAMOUS EPITHIAL 1 /hpf (0-5); URINE AMORPHOUS SEDIMENT RARE /ul (<OCC); URINE BACTERIA RARE (<OCC); URINE BILIRUBIN NEGATIVE (NEGATIVE); URINE CLARITY Hazy (Clear); URINE COLOR Yellow (YELLOW); URINE GLUCOSE (UA) NORMAL (Normal); URINE LEUKOCYTE ESTERASE NEG Leu/uL (Negative); URINE PROTEIN 2+ mg/dL (NEGATIVE); URINE UROBILINOGEN NORMAL mg/dL (0.2-1.0)
[2017-08-20 20:10] LABS: ALB/GLOB RATIO 1.2 (1.0-2.1); ALBUMIN 3.8 g/dL (3.5-5.0); CALCIUM 8.2 mg/dl (8.6-10.4)
[2017-08-20 20:19] LABS: URINE BLOOD TRACE (NEGATIVE)
[2017-08-20] MEDS ORDERED: Iohexol 240 (50 ml) IVP ONE (20:38)
[2017-08-20] MEDS ORDERED: Iohexol 240 (50 ml) PO ONE (20:57)
[2017-08-20] MEDS ORDERED: Iohexol 240 (50 ml) ONE (20:57)
[2017-08-20] MEDS ORDERED: Lactated Ringer's 1,000 ML IV ONE (21:08)
[2017-08-20] MEDS ORDERED: Lactated Ringer's 1,000 ML ONE (21:26)
--- NOTE | 2017-08-20 23:02 | CT ---
EXAM: CT Abdomen and Pelvis Without Intravenous Contrast CLINICAL HISTORY: 52 years old, male; Pain; Abdominal pain; Periumbilical; Additional info: Abd pain TECHNIQUE: Axial computed tomography images of the abdomen and pelvis without intravenous contrast. All CT scans at this facility use one or more dose reduction techniques, viz.: automated exposure control; ma/kV adjustment per patient size (including targeted exams where dose is matched to indication; i.e. head); or iterative reconstruction technique. Coronal and sagittal reformatted images were created and reviewed. COMPARISON: No relevant prior studies available. FINDINGS: Limitations: Lack of intravenous contrast. Lung bases: Elevated RIGHT hemidiaphragm. Mediastinum: Mild mural thickening vs underdistention of distal esophagus. ABDOMEN: Liver: Unremarkable. Gallbladder and bile ducts: No calcified stones. No ductal dilation. Pancreas: Unremarkable. No ductal dilation. Spleen: No splenomegaly. Adrenals: No mass. Kidneys and ureters: Ytjn-ro-bryfqteo stranding about kidneys, nonspecific. No renal calculi. Stomach and bowel: Few scattered diverticula within colon. No associated inflammatory stranding. No definite mural thickening. No obstruction. PELVIS: Appendix: No findings to suggest acute appendicitis. Bladder: Unremarkable. No stones. Reproductive: Unremarkable as visualized. ABDOMEN and PELVIS: Intraperitoneal space: No significant fluid collection. No free air. Bones/joints: Probable bone islands. Degenerative changes of lumbar spine. No acute fracture. Soft tissues: Tiny umbilical hernia containing fat. Vasculature: Mild atherosclerotic disease. No aneurysm. Lymph nodes: No pathologically enlarged lymph nodes. IMPRESSION: 1. Diverticulosis without definite CT evidence of diverticulitis. 2. Perinephric stranding, nonspecific. Correlate with urinalysis to exclude infection. 3. Incidental/non-acute findings are described above.
--- NOTE | 2017-08-21 00:01 | C.PDOC ---
History Of Present Illness 52 y/o with a history of anxiety, ulcerative colitis, disc herniations presents to the ED with abdominal pain. Patient states he vomited 20 times today consisting of brown and green coloration. He claims his last flare hasn't been for months and he is currently passing gas. PMD: None provided Time Seen by Provider: 08/20/17 17:56 Chief Complaint (Nursing): GI Problem History Per: Patient History/Exam Limitations: no limitations Onset/Duration Of Symptoms: Hrs Current Symptoms Are (Timing): Still Present Quality Of Discomfort: "Pain" Recent travel outside of the [place]: No Past Medical History Reviewed: Historical Data, Nursing Documentation, Vital Signs Vital Signs: Last Vital Signs Temp 99.3 F 08/21/17 00:11 Pulse 79 08/21/17 00:11 Resp 18 08/21/17 00:11 BP 125/80 08/21/17 00:11 Pulse Ox 96 08/21/17 00:11 - Medical History PMH: Anxiety, Arthritis, Back Problems, HTN, Hypercholesterolemia Denies: Chronic Kidney Disease Other PMH: ulcerative colitis, disc herniations Surgical History: Appendectomy Other Surgeries: discectomy L4L5 - [facility] Procedures ENDOSC POLYPECTOMY OF LG INTEST (09/25/14) EXCISION OF STOMACH, ENDO, DIAGN (10/31/16) Family History: States: [place], CAD, Hypertension - Social History Hx Tobacco Use: No Hx Alcohol Use: No Hx Substance Use: No - Immunization History Hx Tetanus Toxoid Vaccination: Yes Hx Influenza Vaccination: Yes Hx Pneumococcal Vaccination: Yes Review Of Systems Except As Marked, All Systems Reviewed And Found Negative. Gastrointestinal: Positive for: Vomiting (x20), Abdominal Pain Physical Exam - Physical Exam Appears: Well, No Acute Distress Skin: Normal Color, Warm, Dry Head: Atraumatic, Normacephalic Eye(s): bilateral: Normal Inspection, PERRL, EOMI Nose: Normal Throat: Normal Neck: Normal Cardiovascular: Rhythm Regular, No Murmur Respiratory: Normal Breath Sounds, No Decreased Breath Sounds Gastrointestinal/Abdominal: Tenderness, Distention (some) Back: Normal Inspection Extremity: Normal ROM ED Course And Treatment - Laboratory Results Result Diagrams: 08/20/17 19:42 08/20/17 19:42 O2 Sat by Pulse Oximetry: 96 (RA) Pulse Ox Interpretation: Normal Medical Decision Making Medical Decision Making: Labs reviewed as unremarkable. Obstructive series shows no free air but air fluid levels. Patient found to have acute renal failure with a keratin level of 6 and acute flair of ulcerative colitis. Dr. Hernandez for admission. CT scan found to have no bowel obstruction or other pathology. Disposition - Disposition
[2017-08-21] MEDS: Sodium Chloride 0.9% 1,000 ML IV SCH ×4 (00:03→22:22)
[2017-08-21] MEDS ORDERED: Sodium Chloride 0.9% 1,000 ML ONE (00:08)
[2017-08-21] MEDS: HYDROmorphone 0.5 mg/0.5 ml ISec IVP PRN ×4 (03:45→22:20)
--- NOTE | 2017-08-21 09:02 | RAD ---
PROCEDURE: Radiographs of the chest and abdomen (obstructive series) HISTORY: abd pain COMPARISON: CT abdomen pelvis 08/20/2017 TECHNIQUE: AP radiograph of the chest, with upright and supine radiographs of the abdomen. FINDINGS: CHEST: Lungs: No focal consolidation is seen. Cardiovascular: Heart size is within normal limits. Pleura: No pleural effusion is identified. Other findings: Visualized osseous structures are unremarkable. ABDOMEN AND PELVIS: Bowel: Nonspecific bowel gas pattern. No air-fluid levels identified to suggest bowel obstruction. Moderate to large amount stool throughout the colon. Free air: No free air seen under the diaphragm. Bones: Visualized osseous structures are unremarkable. Other findings: None. IMPRESSION: Moderate to large amount of stool throughout the colon.
[2017-08-21] MEDS ORDERED: Home Med 1 UNIT (Lubiprostone [Amitiza] 24 MCG) PO SCH ×2 (10:00)
--- NOTE | 2017-08-21 11:14 | CP.PCM.CON ---
<Tj Quinonez - Last Filed: 08/21/17 12:55> History of Present Illness - History of Present Illness History of Present Illness: Nephrology Consult Note- Dr. Beaulieu's service Patient is a 52 year old male with PMHx of LBP from previous trauma, anxiety, history of U/C, chronic sinusitis, hx of hepatitis C post treatment, that presented to the ED complaining of numerous episodes of brown vomiting that started about a day prior to admission. Patient states he had never previously had an episode like this before. The vomiting was accompanied by diffuse abdominal pain. He denied any black or red vomitus, nor any black or red in his stool. Nephrology was consulted for a sudden increase in his BUN/Cr compared to baseline in October of last year. Patient denies any urinary complaints,fevers, chills, hematuria. Patient states his last episode of vomit was around 6am today , and it consisted primarily of clear saliva. He states he feels his nausea has improved since he came in. PMHx as stated above PSHx: appendectomy, discectomy Allergies: NKDA Fam hx: noncontributory Social: Denies alcohol, smoking, drug hx. Review of Systems - Constitutional Constitutional: absent: Fever, Weight Loss, Weakness - EENT Eyes: absent: Blurred Vision, Change in Vision Nose/Mouth/Throat: absent: Nasal Congestion - Cardiovascular Cardiovascular: absent: Chest Pain, Chest Pain with Activity, Irregular Heart Rhythm, Leg Edema - Respiratory Respiratory: absent: Cough, Dyspnea, Wheezing - Gastrointestinal Gastrointestinal: Abdominal Pain, Nausea, Vomiting - Genitourinary Genitourinary: absent: Change in Urinary Stream, Difficulty Urinating, Dysuria, Hematuria - Musculoskeletal Musculoskeletal: Back Pain. absent: Loss of Height, Myalgias, Neck Pain, Numbness - Neurological Neurological: absent: Abnormal Hearing, Abnormal Movements, Tremor, Weakness - Psychiatric Psychiatric: absent: Anxiety, Panic Attacks, Paranoia - Endocrine Endocrine: absent: Fatigue, Palpitations Past Patient History - Past Medical History & Family History Past Medical History?: Yes - Past Social History Smoking Status: Never Smoked - CARDIAC Hx Cardiac Disorders: Yes Hx Hypercholesterolemia: Yes Hx Hypertension: Yes - PULMONARY Hx Respiratory Disorders: No - NEUROLOGICAL Hx Neurological Disorder: No - HEENT Hx HEENT Problems: No - RENAL Hx Chronic Kidney Disease: No - ENDOCRINE/METABOLIC Hx Endocrine Disorders: No - HEMATOLOGICAL/ONCOLOGICAL Hx Blood Disorders: Yes Hx Hepatitis C: Yes - INTEGUMENTARY Hx Dermatological Problems: No - MUSCULOSKELETAL/RHEUMATOLOGICAL Hx Musculoskeletal Disorders: Yes Hx Arthritis: Yes Hx Back Pain: Yes Hx Herniated Disk: Yes - GASTROINTESTINAL Hx Gastrointestinal Disorders: Yes Hx Gastroesophageal Reflux: Yes Hx Hemorrhoids: Yes - GENITOURINARY/GYNECOLOGICAL Hx Genitourinary Disorders: No - PSYCHIATRIC Hx Psychophysiologic Disorder: Yes Hx Anxiety: Yes Hx Substance Use: No - SURGICAL HISTORY Hx Surgeries: Yes Hx Appendectomy: Yes Other/Comment: Discectomy L4L5 , Polypectomy of Lg Intestine (09/25/14) - ANESTHESIA Hx Anesthesia: Yes Hx Anesthesia Reactions: No Hx Malignant Hyperthermia: No Has any member of the family had a problem w/ anesthesia?: No Meds Allergies/Adverse Reactions: Allergies Allergy/AdvReac Type Severity Reaction Status Date / Time No Known Allergies Allergy Verified 08/20/17 17:17 - Medications Medications: Current Medications Acetaminophen (Tylenol 325mg Tab) 650 mg PO Q6 PRN PRN Reason: Headache Heparin Sodium (Porcine) (Heparin) 5,000 units SC Q12 [facility] Last Admin: 08/21/17 09:41 Dose: 5,000 units Home Med (Lubiprostone [Amitiza]) 24 mcg PO BID [facility] Hydromorphone HCl (Dilaudid) 0.5 mg IVP Q6H PRN PRN Reason: Pain, severe (8-10) Last Admin: 08/21/17 09:41 Dose: 0.5 mg Sodium Chloride (Sodium Chloride 0.9%) 1,000 mls @ 100 mls/hr IV .Q10H [facility] Last Admin: 08/21/17 00:03 Dose: 100 mls/hr Lisinopril (Zestril) 10 mg PO DAILY [facility] Physical Exam - Constitutional Appears: Non-toxic, No Acute Distress - Head Exam Head Exam: ATRAUMATIC, NORMAL INSPECTION, NORMOCEPHALIC - Eye Exam Pupil Exam: NORMAL ACCOMODATION, PERRL - ENT Exam ENT Exam: Mucous Membranes Moist - Respiratory Exam Respiratory Exam: Clear to Auscultation Bilateral, NORMAL BREATHING PATTERN. absent: Decreased Breath Sounds, Prolonged Expiratory Phase, Rales, Rhonchi, Wheezes - Cardiovascular Exam Cardiovascular Exam: REGULAR RHYTHM, +S1, +S2 - GI/Abdominal Exam GI & Abdominal Exam: Normal Bowel Sounds, Soft, Tenderness (mild diffuse tenderness) - Extremities Exam Extremities exam: Positive for: normal capillary refill, pedal pulses present - Neurological Exam Neurological exam: Alert, CN II-XII Intact, Oriented x3 - Psychiatric Exam Psychiatric exam: Normal Affect, Normal Mood - Skin Skin Exam: Dry, Intact, Normal Color, Warm Results - Vital Signs Recent Vital Signs: Last Vital Signs Temp 98.1 F 08/21/17 08:44 Pulse 63 08/21/17 08:44 Resp 20 08/21/17 08:44 BP 132/67 08/21/17 08:44 Pulse Ox 97 08/21/17 08:44 - Labs Result Diagrams: 08/21/17 11:24 08/21/17 11:24 Labs: Laboratory Results - last 24 hr 08/20/17 08/20/17 08/20/17 19:42 19:42 20:19 WBC 10.1 RBC 4.85 Hgb 13.9 Hct 41.1 MCV 84.8 D MCH 28.6 MCHC 33.7 RDW 14.3 Plt Count 227 MPV 8.3 Neut % (Auto) 65.7 Lymph % (Auto) 14.6 L [place] % (Auto) 18.4 H Eos % (Auto) 1.1 Baso % (Auto) 0.2 Neut # (Auto) 6.7 Lymph # (Auto) 1.5 [place] # (Auto) 1.9 H Eos # (Auto) 0.1 Baso # (Auto) 0.0 Sodium 133 Potassium 4.1 Chloride 93 L Carbon Dioxide 27 Anion Gap 18 BUN 34 H Creatinine 6.5 H Est GFR ( Amer) 11 Est GFR (Non-Af Amer) 9 Random Glucose 81 Calcium 8.2 L Total Bilirubin 0.8 AST 18 ALT 26 Alkaline Phosphatase 61 Total Protein 7.1 Albumin 3.8 Globulin 3.3 Albumin/Globulin Ratio 1.2 Lipase Urine Color Yellow Urine Clarity Hazy Urine pH 5.0 Ur Specific [place] 1.009 Urine Protein 2+ H Urine Glucose (UA) Normal Urine Ketones Negative Urine Blood Trace H Urine Nitrate Negative Urine Bilirubin Negative Urine Urobilinogen Normal Ur Leukocyte Esterase Neg Urine WBC (Auto) 3 Urine RBC (Auto) 3 Ur Squamous Epith Cells 1 Amorphous Sediment Rare H Urine Bacteria Rare Hyaline Casts 6-10 H 08/20/17 22:20 WBC RBC Hgb Hct MCV MCH MCHC RDW Plt Count MPV Neut % (Auto) Lymph % (Auto) [place] % (Auto) Eos % (Auto) Baso % (Auto) Neut # (Auto) Lymph # (Auto) [place] # (Auto) Eos # (Auto) Baso # (Auto) Sodium Potassium Chloride Carbon Dioxide Anion Gap BUN Creatinine Est GFR ( Amer) Est GFR (Non-Af Amer) Random Glucose Calcium Total Bilirubin AST ALT Alkaline Phosphatase Total Protein Albumin Globulin Albumin/Globulin Ratio Lipase 32 Urine Color Urine Clarity Urine pH Ur Specific [place] Urine Protein Urine Glucose (UA) Urine Ketones Urine Blood Urine Nitrate Urine Bilirubin Urine Urobilinogen Ur Leukocyte Esterase Urine WBC (Auto) Urine RBC (Auto) Ur Squamous Epith Cells Amorphous Sediment Urine Bacteria Hyaline Casts Assessment & Plan - Assessment and Plan (Free Text) Assessment: Acute Kidney Injury Likely secondary to excessive vomiting/volume depletion BUN/Cr 34/6.5, GFR 9 Hold Lisinopril 10mg PO Daily Trend BUN/Cr Added Dilaudid 0.5mg IVP Q6h PRN for pain Increased IVF NS @ 125cc/hr Ordered Renal Ultrasound ordered C3/C4 Ordered Hepatitis C antibody w/ reflex Medical management discussed with Dr. Beaulieu <Jonathan Beaulieu - Last Filed: 08/22/17 09:47> Meds - Medications Medications: Current Medications Acetaminophen (Tylenol 325mg Tab) 650 mg PO Q6 PRN PRN Reason: Headache Last Admin: 08/21/17 12:12 Dose: 650 mg Heparin Sodium (Porcine) (Heparin) 5,000 units SC Q12 [facility] Last Admin: 08/21/17 22:29 Dose: 5,000 units Hydromorphone HCl (Dilaudid) 0.5 mg IVP Q6H PRN PRN Reason: Pain, severe (8-10) Last Admin: 08/22/17 04:45 Dose: 0.5 mg Sodium Chloride (Sodium Chloride 0.9%) 1,000 mls @ 125 mls/hr IV .Q8H [facility] Last Admin: 08/22/17 04:45 Dose: 125 mls/hr Lisinopril (Zestril) 10 mg PO DAILY [facility] Ondansetron HCl (Zofran Inj) 4 mg IVP Q6H PRN PRN Reason: Nausea/Vomiting Last Admin: 08/21/17 12:12 Dose: 4 mg Results - Vital Signs Recent Vital Signs: Last Vital Signs Temp 97.3 F L 08/22/17 08:00 Pulse 79 08/22/17 08:00 Resp 20 08/22/17 08:00 BP 136/73 08/22/17 08:00 Pulse Ox 96 08/22/17 08:00 - Labs Result Diagrams: 08/22/17 07:43 08/22/17 07:43 Labs: Laboratory Results - last 24 hr 08/21/17 08/21/17 08/21/17 11:24 11:24 11:24 WBC 8.1 RBC 4.52 Hgb 12.8 Hct 38.1 MCV 84.4 MCH 28.4 MCHC 33.6 RDW 14.3 Plt Count 207 MPV 7.8 Neut % (Auto) 60.8 Lymph % (Auto) 17.2 L [place] % (Auto) 20.3 H Eos % (Auto) 1.3 Baso % (Auto) 0.4 Neut # (Auto) 4.9 Lymph # (Auto) 1.4 [place] # (Auto) 1.6 H Eos # (Auto) 0.1 Baso # (Auto) 0.0 Neutrophils % (Manual) 57 Lymphocytes % (Manual) 23 Monocytes % (Manual) 20 H Platelet Estimate Normal ESR 24 H PT INR APTT Sodium 136 Potassium 4.1 Chloride 98 Carbon Dioxide 26 Anion Gap 16 BUN 35 H Creatinine 5.5 H Est GFR ( Amer) 13 Est GFR (Non-Af Amer) 11 Random Glucose 93 Hemoglobin A1c Calcium 7.8 L Phosphorus 5.3 H Magnesium 2.3 Iron TIBC % Saturation Total Bilirubin 0.7 AST 14 L D ALT 19 L D Alkaline Phosphatase 52 Total Creatine Kinase 134 Total Protein 6.3 Albumin 3.5 Globulin 2.9 Albumin/Globulin Ratio 1.2 Triglycerides Cholesterol LDL Cholesterol Direct HDL Cholesterol Carcinoembryonic Ag 1.3 25-OH Vitamin D Total 16.2 L Complement C3 Complement C4 08/21/17 08/22/17 08/22/17 17:11 07:43 07:43 WBC 7.4 RBC 4.39 L Hgb 12.6 Hct 37.0 MCV 84.2 MCH 28.7 MCHC 34.1 RDW 14.4 Plt Count 211 MPV 8.2 Neut % (Auto) 68.8 Lymph % (Auto) 13.6 L [place] % (Auto) 16.6 H Eos % (Auto) 0.8 Baso % (Auto) 0.2 Neut # (Auto) 5.1 Lymph # (Auto) 1.0 [place] # (Auto) 1.2 H Eos # (Auto) 0.1 Baso # (Auto) 0.0 Neutrophils % (Manual) Lymphocytes % (Manual) Monocytes % (Manual) Platelet Estimate ESR PT 12.5 H INR 1.1 APTT 28 Sodium 140 Potassium 4.8 Chloride 105 Carbon Dioxide 25 Anion Gap 14 BUN 34 H Creatinine 4.2 H Est GFR ( Amer) 18 Est GFR (Non-Af Amer) 15 Random Glucose 106 Hemoglobin A1c Calcium 8.6 Phosphorus Magnesium Iron TIBC % Saturation Total Bilirubin 0.8 AST 19 ALT 25 Alkaline Phosphatase 58 Total Creatine Kinase Total Protein 6.5 Albumin 3.4 L Globulin 3.0 Albumin/Globulin Ratio 1.1 Triglycerides Cholesterol LDL Cholesterol Direct HDL Cholesterol Carcinoembryonic Ag 25-OH Vitamin D Total Complement C3 Complement C4 08/22/17 08/22/17 08/22/17 07:43 07:43 07:43 WBC RBC Hgb Hct MCV MCH MCHC RDW Plt Count MPV Neut % (Auto) Lymph % (Auto) [place] % (Auto) Eos % (Auto) Baso % (Auto) Neut # (Auto) Lymph # (Auto) [place] # (Auto) Eos # (Auto) Baso # (Auto) Neutrophils % (Manual) Lymphocytes % (Manual) Monocytes % (Manual) Platelet Estimate ESR PT INR APTT Sodium Potassium Chloride Carbon Dioxide Anion Gap BUN Creatinine Est GFR ( Amer) Est GFR (Non-Af Amer) Random Glucose Hemoglobin A1c Calcium Phosphorus Magnesium Iron 24 L TIBC 341 % Saturation 7 L Total Bilirubin AST ALT Alkaline Phosphatase Total Creatine Kinase Total Protein Albumin Globulin Albumin/Globulin Ratio Triglycerides 104 Cholesterol 133 LDL Cholesterol Direct 64 HDL Cholesterol 38 Carcinoembryonic Ag 25-OH Vitamin D Total Complement C3 105.0 Complement C4 24.9 08/22/17 07:43 WBC RBC Hgb Hct MCV MCH MCHC RDW Plt Count MPV Neut % (Auto) Lymph % (Auto) [place] % (Auto) Eos % (Auto) Baso % (Auto) Neut # (Auto) Lymph # (Auto) [place] # (Auto) Eos # (Auto) Baso # (Auto) Neutrophils % (Manual) Lymphocytes % (Manual) Monocytes % (Manual) Platelet Estimate ESR PT INR APTT Sodium Potassium Chloride Carbon Dioxide Anion Gap BUN Creatinine Est GFR ( Amer) Est GFR (Non-Af Amer) Random Glucose Hemoglobin A1c 5.7 Calcium Phosphorus Magnesium Iron TIBC % Saturation Total Bilirubin AST ALT Alkaline Phosphatase Total Creatine Kinase Total Protein Albumin Globulin Albumin/Globulin Ratio Triglycerides Cholesterol LDL Cholesterol Direct HDL Cholesterol Carcinoembryonic Ag 25-OH Vitamin D Total Complement C3 Complement C4 Attending/Attestation - Attestation I have personally seen and examined this patient.: Yes I have fully participated in the care of the patient.: Yes I have reviewed all pertinent clinical information: Yes Notes (Text): Patient seen and examined; I agree with the resident's note as above with the following additions/edits: 52 yo M w/ pmh of htn, hep C (reportedly treated 6 yrs ago) and UC, admitted with recurrent vomiting and acute renal failure; patient reports symptoms started only on day before presentation; short duration of symptoms doesn't explain such profound renal failure (serum creatinine 0.8 in 04/2017 per report shown to us by patient), history may not be accurate; otherwise, renal function improving with IVF indicating pre-renal etiology, cannot rule out superimposed ATN or another concomitant process; -continue NS at 100 cc/hr -obtain urine lytes (Na, creat); -obtain random urine protein and creatinine; -obtain C3, C4 and HCV Ab looking for evidence of hep C recurrence; -continue to hold lisinopril (normotensive currently); -continue to avoid nephrotoxic agents (including NSAIDS for pain, phosphate enema, etc);
[2017-08-21 11:36] LABS: BASO % 0.4 % (0.0-2.0); EOS # 0.1 K/uL (0.0-0.7); EOS % 1.3 % (0.0-4.0); HEMOGLOBIN 12.8 g/dL (12.0-18.0); LYMPH # 1.4 K/uL (1.0-4.3); LYMPH % 17.2 % (20.0-40.0); MEAN CELL VOLUME 84.4 fL (80.0-94.0); MEAN CORPUSCULAR HEMOGLOBIN 28.4 pg (27.0-31.0); MEAN CORPUSCULAR HGB CONC 33.6 g/dL (33.0-37.0); MEAN PLATELET VOLUME 7.8 fL (7.2-11.7); MONO # 1.6 K/uL (0.0-0.8); MONO % 20.3 % (0.0-10.0); NEUT # 4.9 K/uL (1.8-7.0); NEUT % 60.8 % (50.0-75.0); PLATELET COUNT 207 K/uL (130-400); RBC 4.52 Mil/uL (4.40-5.90); RED CELL DISTRIBUTION WIDTH 14.3 % (11.5-14.5); WHITE BLOOD COUNT 8.1 K/uL (4.8-10.8)
[2017-08-21 11:50] LABS: ALB/GLOB RATIO 1.2 (1.0-2.1); ALBUMIN 3.5 g/dL (3.5-5.0); CALCIUM 7.8 mg/dl (8.6-10.4)
[2017-08-21 12:17] LABS: NEUTROPHIL 57 % (50-75); TOTAL CELLS COUNTED 100
[2017-08-21 12:18] LABS: LYMPHOCYTE 23 % (20-40); MONOCYTE 20 % (0-10); PLATELET ESTIMATE NORMAL (NORMAL)
--- NOTE | 2017-08-21 16:08 | US ---
PROCEDURE: Ultrasound of the Kidneys HISTORY: [facility] COMPARISON: CT abdomen pelvis 08/20/2017. TECHNIQUE: Sonogram of the kidneys. FINDINGS: RIGHT KIDNEY: Measures: 10.3 cm. Unremarkable in echogenicity. No shadowing renal stone, cyst, or hydronephrosis is identified. LEFT KIDNEY: Measures: 11.2 cm. Unremarkable in echogenicity. No shadowing renal stone, cyst, or hydronephrosis is identified. OTHER FINDINGS: Visualized portions of the aorta are normal in caliber. Visualized portions of the urinary bladder are unremarkable IMPRESSION: Unremarkable renal sonogram.
[2017-08-21 17:31] LABS: INR 1.1; PROTHROMBIN TIME 12.5 SECONDS (9.7-12.2)
--- NOTE | 2017-08-21 22:50 | CON ---
DATE: 08/21/2017 LOCATION: 360, bed [facility] was called for GI consultation by the admitting medical team as well as the ER team. The patient is seen and fully examined in the presence of the medical staff as well as the staff in the floor on 08/21/2017. The entire chart is reviewed including, but not limited to, the most recent lab and radiology study results, current and previous medication list, current and previous medical events, allergy to medication list as well as all the available current and previous medical records. HISTORY OF PRESENT ILLNESS: This is a 52-year-old male, known case for me from previous office visit and hospital admission, was admitted to the hospital through the emergency room with severe abdominal pain with recurrent nausea and vomiting over 20 to 22 times of dark brownish mixed with clear-colored gastric contents with change of bowel movement, but passing gas freely. No chest pain and palpitation. No reported significant shortness of breath and no reported active bleeding but an occult bowel movement recently. PAST MEDICAL HISTORY: Including but not limited to, 1. Ulcerative colitis. 2. Peptic ulcer disease. 3. Severe anxiety syndrome. 4. Chronic lower back pain syndrome. 5. Osteoarthritis. 6. History of hyperlipidemia, hypertension. 7. LS spine herniated disk. 8. Status post appendectomy by history. 9. Status post diskectomy at L4-L5 vertebra. 10. Colonoscopy with removal of colon polyp done on 09/2014. 11. Upper endoscopy on 10/31/2016. FAMILY HISTORY: Positive for coronary artery disease, hypertension with [place]. SOCIAL HISTORY: No known recent history of cigarette smoking or alcohol intake. CURRENT MEDICATIONS: Medication list was reviewed post admission. Initial blood workup at the time of the admission showed normal CBC, increased BUN at 34, creatinine 6.5, calcium 8.2 despite no known history of renal disorder. Abdominal and pelvic CAT scan done in the emergency room, official report is seen indicative of diverticulosis without definitive diverticulitis, with possible colitis. PHYSICAL EXAMINATION: GENERAL: A 52-year-old male, awake, alert, oriented, pleasant with complaint of crampy abdominal pain and persistent nausea. VITAL SIGNS: Afebrile with pulse of 66, respiratory rate 20 to 22, blood pressure 128/70. HEENT: Showed dry oral mucous membrane. Nonicteric sclera. LUNGS: He has got crepitation. Decreased air entry at bases. HEART: Positive S1 and S2. ABDOMEN: Soft. Slightly distended. Mildly obese with generalized tenderness mainly in the mid epigastric as well as left and right lower quadrant area. Bowel sounds are hyperactive. No mass or organomegaly. No rebound tenderness or guarding. EXTREMITIES: Without significant clubbing, cyanosis, or edema. NEUROLOGIC: No reported new neurological deficit, sensory or motor. No reported new focal deficits. Peripheral pulses are present bilaterally. IMPRESSION: 1. Re-exacerbation of peptic ulcer disease with hematemesis of coffee-ground material of unclear etiology, to rule out gastric versus duodenal ulcer. 2. Reported history of inflammatory bowel disease with re-exacerbation. 3. Known history of colon polyp. Last colonoscopy was over three years ago. 4. Acute renal failure of unclear etiology. 5. Multiple past medical history as mentioned above. SUGGESTION: 1. Agree with your plan. 2. Zofran IV. 3. Proton pump inhibitors. 4. The patient may start on clear liquid diet in the meantime with full nephrology evaluation and rehydration. 5. Cancer markers. 6. Serum lipase and amylase levels. 7. Upper endoscopy followed by lower endoscopy due to the patient's clinical presentation when he is more stable clinically, keeping in mind patient's known history of colon polyp without recent followup. 8. Further recommendation to follow. Thank your for letting me participate in your patient's case management. María Gregorio MD
[2017-08-22] MEDS: Sodium Chloride 0.9% 1,000 ML IV SCH ×4 (04:45→22:36)
[2017-08-22] MEDS: HYDROmorphone 0.5 mg/0.5 ml ISec IVP PRN ×3 (04:45→21:39)
[2017-08-22 08:01] LABS: BASO % 0.2 % (0.0-2.0); EOS # 0.1 K/uL (0.0-0.7); EOS % 0.8 % (0.0-4.0); HEMOGLOBIN 12.6 g/dL (12.0-18.0); LYMPH % 13.6 % (20.0-40.0); MEAN CELL VOLUME 84.2 fL (80.0-94.0); MEAN CORPUSCULAR HEMOGLOBIN 28.7 pg (27.0-31.0); MEAN CORPUSCULAR HGB CONC 34.1 g/dL (33.0-37.0); MEAN PLATELET VOLUME 8.2 fL (7.2-11.7); MONO # 1.2 K/uL (0.0-0.8); MONO % 16.6 % (0.0-10.0); NEUT # 5.1 K/uL (1.8-7.0); NEUT % 68.8 % (50.0-75.0); NRBC % 0.1 % (0.0-2.0); RBC 4.39 Mil/uL (4.40-5.90); RED CELL DISTRIBUTION WIDTH 14.4 % (11.5-14.5); WHITE BLOOD COUNT 7.4 K/uL (4.8-10.8)
[2017-08-22 08:29] LABS: IRON 24 ug/dL (49-181)
[2017-08-22 08:30] LABS: ALB/GLOB RATIO 1.1 (1.0-2.1); ALBUMIN 3.4 g/dL (3.5-5.0); CALCIUM 8.6 mg/dl (8.6-10.4)
[2017-08-22 08:44] LABS: COMPLEMENT C4 24.9 mg/dL (14.0-44.0)
[2017-08-22 08:51] LABS: % IRON SATURATION 7 (20-55); TOTAL IRON BINDING CAPACITY 341 ug/dL (250-450)
[2017-08-22 09:27] LABS: FOLATE 7.8 ng/mL
[2017-08-22] MEDS ORDERED: Propofol 10 mg/ml Inj (20 ML) ONE (09:39)
[2017-08-22] MEDS ORDERED: Peg-Electrolyte Oral Soln 4L (Golytely) PO ONE (12:00)
[2017-08-22 16:30] LABS: CREATININE, RANDOM URINE 84.8 mg/dL
[2017-08-22] MEDS ORDERED: Bisacodyl 5mg EC Tab PO ONE (17:00)
--- NOTE | 2017-08-22 22:35 | CP.PCM.PN ---
Subjective - Date & Time of Evaluation Date of Evaluation: 08/22/17 Time of Evaluation: 13:00 - Subjective Subjective: Patient reports feeling well; tolerating diet; no more vomiting; urinating well; Objective - Vital Signs/Intake and Output Vital Signs (last 24 hours): Temp Pulse Resp BP Pulse Ox 98.3 F 63 20 146/84 95 08/22/17 16:39 08/22/17 16:39 08/22/17 16:39 08/22/17 16:39 08/22/17 16:39 Intake and Output: 08/22/17 08/23/17 18:59 06:59 Intake Total 300 4480 Balance 300 4480 - Medications Medications: Current Medications Acetaminophen (Tylenol 325mg Tab) 650 mg PO Q6 PRN PRN Reason: Headache Last Admin: 08/21/17 12:12 Dose: 650 mg Heparin Sodium (Porcine) (Heparin) 5,000 units SC Q12 [facility] Last Admin: 08/22/17 21:39 Dose: 5,000 units Hydromorphone HCl (Dilaudid) 0.5 mg IVP Q6H PRN PRN Reason: Pain, severe (8-10) Last Admin: 08/22/17 21:39 Dose: 0.5 mg Sodium Chloride (Sodium Chloride 0.9%) 1,000 mls @ 125 mls/hr IV .Q8H [facility] Last Admin: 08/22/17 16:38 Dose: 125 mls/hr Lisinopril (Zestril) 10 mg PO DAILY [facility] Ondansetron HCl (Zofran Inj) 4 mg IVP Q6H PRN PRN Reason: Nausea/Vomiting Last Admin: 08/21/17 12:12 Dose: 4 mg - Labs Labs: 08/22/17 07:43 08/22/17 07:43 PT 12.5 SECONDS (9.7-12.2) H 08/21/17 17:11 INR 1.1 08/21/17 17:11 APTT 28 SECONDS (21-34) 08/21/17 17:11 - Constitutional Appears: Non-toxic, No Acute Distress - Eye Exam Eye Exam: absent: Scleral icterus - ENT Exam ENT Exam: Mucous Membranes Moist - Respiratory Exam Respiratory Exam: Clear to Ausculation Bilateral. absent: Respiratory Distress - Cardiovascular Exam Cardiovascular Exam: RRR, +S1, +S2 - GI/Abdominal Exam GI & Abdominal Exam: Soft. absent: Distended, Tenderness - Extremities Exam Additional comments: no leg edema; - Neurological Exam Neurological Exam: Alert, Awake - Psychiatric Exam Psychiatric exam: absent: Agitated - Skin Skin Exam: Warm. absent: Cyanosis Assessment and Plan (1) Acute kidney injury Assessment & Plan: Gradually improving with IVF, consistent with pre-renal etiology; awaiting urine protein measurement; otherwise, no indication of a secondary process; continue IVF w/ NS at 125 cc/hr Status: Acute (2) HTN (hypertension) Assessment & Plan: Normotensive currently, continue to hold lisinopril; Status: Acute (3) History of hepatitis C Assessment & Plan: Awaiting hep C Ab/viral load testing but complements normal which is reassuring for any renal involvement; Status: Acute (4) Back pain Assessment & Plan: On dilaudid prn, continue to avoid morphine in renal failure due to accumulation of metabolites; Status: Chronic
[2017-08-23] MEDS: Sodium Chloride 0.9% 1,000 ML IV SCH ×4 (01:00→21:20)
[2017-08-23] MEDS: HYDROmorphone 0.5 mg/0.5 ml ISec IVP PRN ×4 (03:35→23:25)
[2017-08-23 08:11] LABS: BASO % 0.3 % (0.0-2.0); EOS # 0.1 K/uL (0.0-0.7); EOS % 1.1 % (0.0-4.0); HEMOGLOBIN 13.5 g/dL (12.0-18.0); LYMPH # 1.4 K/uL (1.0-4.3); LYMPH % 16.3 % (20.0-40.0); MEAN CELL VOLUME 84.1 fL (80.0-94.0); MEAN CORPUSCULAR HEMOGLOBIN 29.1 pg (27.0-31.0); MEAN CORPUSCULAR HGB CONC 34.5 g/dL (33.0-37.0); MEAN PLATELET VOLUME 8.3 fL (7.2-11.7); MONO # 1.3 K/uL (0.0-0.8); MONO % 14.9 % (0.0-10.0); NEUT # 5.7 K/uL (1.8-7.0); NEUT % 67.4 % (50.0-75.0); NRBC % 0.1 % (0.0-2.0); RBC 4.66 Mil/uL (4.40-5.90); RED CELL DISTRIBUTION WIDTH 14.4 % (11.5-14.5); WHITE BLOOD COUNT 8.5 K/uL (4.8-10.8)
[2017-08-23 08:26] LABS: ALB/GLOB RATIO 1.1 (1.0-2.1); ALBUMIN 3.6 g/dL (3.5-5.0); CALCIUM 8.6 mg/dl (8.6-10.4)
[2017-08-23] MEDS ORDERED: Sodium Chloride 0.9% 1,000 ML IV ONE (09:40)
[2017-08-23] MEDS ORDERED: Lidocaine Hydrochloride 5 ML INJ ONE (09:47)
[2017-08-23] MEDS ORDERED: Propofol 10 mg/ml Inj (20 ML) ONE ×2 (09:47)
[2017-08-23] MEDS ORDERED: Magnesium Citrate Oral SOL (300 ml) PO ONE ×2 (13:00→19:30)
[2017-08-23] MEDS ORDERED: Bisacodyl 5mg EC Tab PO ONE (16:00)
--- NOTE | 2017-08-23 16:52 | PN ---
DATE: 08/22/2017 SUBJECTIVE: The patient is a 52-year-old male. The patient was seen and examined at bedside on 08/22/2017 and looking comfortable, tolerating diet. No more vomiting during the evaluation. No fever, no chills. No hematuria, no hematochezia. No headache, no dizziness. PHYSICAL EXAMINATION: VITAL SIGNS: Temperature 98.3, pulse 63, respiratory rate 20, blood pressure 140/84, pulse oximetry 95%. HEENT: Head: Normocephalic and atraumatic. Eyes: PERRLA. Extraocular muscles intact. Conjunctivae clear. Nose patent. Mucous membranes moist. NECK: Supple. No carotid bruits. No thyromegaly. CHEST: Bilaterally symmetrical. HEART: S1 and S2 positive. LUNGS: Clear to auscultation. ABDOMEN: Soft. Bowel sounds positive. No organomegaly. EXTREMITIES: No edema, no cyanosis. NEUROLOGIC: The patient is awake, alert, moving all 4 extremities. No focal deficits. MEDICATIONS: Heparin, Dilaudid, Zestril, Zofran. LABORATORY DATA: White blood cells 7.4, hemoglobin 12.6, hematocrit 37.0, platelets 211. Sodium 140, potassium 4.8, BUN 34, creatinine 4.2, glucose 106. ASSESSMENT AND PLAN: Mr. Gino Craven is a 52-year-old male with renal insufficiency, had acute kidney injury, gradually improving with intravenous fluids consistent with prerenal azotemia. No indication of secondary process. 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 Hypertension, getting better. History of hepatitis C, waiting for C antibody viral load testing that complement normal with reassuring for any renal involvement. Back pain, on Dilaudid. Continue to avoid morphine in renal failure due to accumulation of metabolic component as per Nephrology. Appreciated Dr. Jonathan Beaulieu's input. Renal ultrasound reviewed. Reviewed with Dr. María Gregorio's notes. We will follow up. Chayo Jamison MD [facility]
--- NOTE | 2017-08-23 22:32 | CP.PCM.PN ---
Subjective - Date & Time of Evaluation Date of Evaluation: 08/23/17 Time of Evaluation: 12:30 - Subjective Subjective: Reports feeling well; tolerating liquid diet; no sob; Objective - Vital Signs/Intake and Output Vital Signs (last 24 hours): Temp Pulse Resp BP Pulse Ox 97.6 F 73 11 L 137/73 96 08/23/17 16:00 08/23/17 16:00 08/23/17 10:36 08/23/17 16:00 08/23/17 16:00 Intake and Output: 08/23/17 08/24/17 18:59 06:59 Intake Total 480 Balance 480 - Medications Medications: Current Medications Acetaminophen (Tylenol 325mg Tab) 650 mg PO Q6 PRN PRN Reason: Headache Last Admin: 08/21/17 12:12 Dose: 650 mg Heparin Sodium (Porcine) (Heparin) 5,000 units SC Q12 [facility] Last Admin: 08/23/17 21:20 Dose: 5,000 units Hydromorphone HCl (Dilaudid) 0.5 mg IVP Q6H PRN PRN Reason: Pain, severe (8-10) Last Admin: 08/23/17 17:25 Dose: 0.5 mg Sodium Chloride (Sodium Chloride 0.9%) 1,000 mls @ 125 mls/hr IV .Q8H [facility] Last Admin: 08/23/17 21:20 Dose: 125 mls/hr Lisinopril (Zestril) 10 mg PO DAILY [facility] Ondansetron HCl (Zofran Inj) 4 mg IVP Q6H PRN PRN Reason: Nausea/Vomiting Last Admin: 08/21/17 12:12 Dose: 4 mg - Labs Labs: 08/23/17 07:58 08/23/17 07:58 PT 12.5 SECONDS (9.7-12.2) H 08/21/17 17:11 INR 1.1 08/21/17 17:11 APTT 28 SECONDS (21-34) 08/21/17 17:11 - Constitutional Appears: Non-toxic, No Acute Distress - Eye Exam Eye Exam: absent: Scleral icterus - ENT Exam ENT Exam: Mucous Membranes Moist - Respiratory Exam Respiratory Exam: Clear to Ausculation Bilateral. absent: Respiratory Distress - Cardiovascular Exam Cardiovascular Exam: RRR, +S1, +S2 - GI/Abdominal Exam GI & Abdominal Exam: Soft. absent: Distended, Tenderness - Exam Exam: absent: Bladder Distension - Extremities Exam Additional comments: no leg edema; - Neurological Exam Neurological Exam: Alert, Awake - Psychiatric Exam Psychiatric exam: Normal Mood. absent: Agitated - Skin Skin Exam: Warm. absent: Cyanosis Assessment and Plan (1) Acute kidney injury Assessment & Plan: Pre-renal etiology, resolving; likely occurred over longer period than patient is indicating; continue NS at 125 cc/hr; Status: Acute (2) HTN (hypertension) Assessment & Plan: Normotensive, continue to hold lisinopril; Status: Chronic (3) History of hepatitis C Assessment & Plan: hep C Ab reactive but need to see viral load result, can f/u as outpatient; Status: Chronic (4) Back pain Assessment & Plan: Renal function improving but will continue to hold off on morphine for now; Status: Chronic
--- NOTE | 2017-08-24 05:06 | PN ---
DATE: 08/23/17 SUBJECTIVE: The patient was seen and examined on the bed side, looking comfortable, having a liquid diet, is supposed to go for colonoscopy and endoscopy by Dr. María Gregorio. No headache, no dizziness, no chest pain, no palpitations, no fever, no chills. PHYSICAL EXAMINATION: VITAL SIGNS: Temperature 97.6, pulse 73, respirations 11, blood pressure 137/76, pulse oximetry 97. HEENT: Head: Normocephalic and atraumatic. Eyes: PERRLA. Extraocular muscles intact. Conjunctivae clear. Nose: Patent. Mucous membranes moist. NECK: Supple. No carotid bruits. No thyromegaly. CHEST: Bilaterally symmetrical. HEART: S1 and S2, positive. LUNGS: Clear to auscultation. ABDOMEN: Soft. Bowel sounds positive. No organomegaly. EXTREMITIES: No edema, no cyanosis. NEUROLOGIC: The patient is awake, alert, moving all 4 extremities. No focal deficits. MEDICATIONS: Tylenol, heparin, Dilaudid, NS, Zestril, Zofran. LABORATORY DATA: White blood cell 8.5, hemoglobin 13.5, hematocrit 39.2, platelets 207. Sodium 146, potassium 4.6, BUN 23, creatinine 2.9, glucose 81. ASSESSMENT AND PLAN: Mr. Merissa Christian is a 52-year-old male with renal insufficiency, improving. Sheriffs Officer is on the case. Acute kidney injury. History of hypertension. Positive back pain. I appreciate Dr. Jonathan Beaulieu's input. The patient went today for esophagogastroduodenoscopy with biopsy and colonoscopy. According to Dr. María Gregorio, the patient has distal esophagitis, hiatal hernia, gastritis, and gastroparesis. PLAN: Continue current treatment. GI/DVT prophylaxis. Advance diet as tolerated. Repeat labs. We will follow up. Chayo Jamison MD MTDD
[2017-08-24] MEDS: HYDROmorphone 0.5 mg/0.5 ml ISec IVP PRN ×2 (05:33→14:10)
[2017-08-24] MEDS: Sodium Chloride 0.9% 1,000 ML IV SCH ×2 (05:35→12:41)
[2017-08-24 07:22] LABS: BASO % 0.4 % (0.0-2.0); EOS # 0.1 K/uL (0.0-0.7); EOS % 1.1 % (0.0-4.0); HEMOGLOBIN 12.8 g/dL (12.0-18.0); LYMPH # 1.1 K/uL (1.0-4.3); LYMPH % 12.3 % (20.0-40.0); MEAN CELL VOLUME 84.6 fL (80.0-94.0); MEAN CORPUSCULAR HGB CONC 34.3 g/dL (33.0-37.0); MEAN PLATELET VOLUME 8.6 fL (7.2-11.7); MONO # 1.1 K/uL (0.0-0.8); MONO % 12.4 % (0.0-10.0); NEUT # 6.6 K/uL (1.8-7.0); NEUT % 73.8 % (50.0-75.0); RBC 4.4 Mil/uL (4.40-5.90); RED CELL DISTRIBUTION WIDTH 14.5 % (11.5-14.5)
[2017-08-24 07:47] LABS: ALB/GLOB RATIO 1.1 (1.0-2.1); ALBUMIN 3.4 g/dL (3.5-5.0); CALCIUM 8.4 mg/dl (8.6-10.4)
--- NOTE | 2017-08-24 09:57 | HP ---
CHIEF COMPLAINT: Nausea and vomiting. HISTORY OF PRESENT ILLNESS: The patient is a 52-year-old male, came with nausea and vomiting. The patient has a history of ulcerative colitis exacerbation, came to the emergency room with abdominal pain. The patient states that he vomited 20 times on the day of admission consistent with brown and green colored secretions. He claims his last flareup has been in 4 months and he is currently passing gas. No fever. No chills. No hematuria. No hematochezia. PAST MEDICAL HISTORY: Anxiety, arthritis, back pain, hypertension, hypercholesterolemia, ulcerative colitis, disk herniation, appendectomy, L4-L5 diskectomy. FAMILY HISTORY: Father and mother, noncontributory. HABITS: Never smoked. No drugs. No ethanol. ALLERGIES: PATIENT IS NOT ALLERGIC WITH ANY MEDICATION. HOME MEDICATIONS: Reviewed by me. REVIEW OF SYSTEMS: The patient seen and examined on the bedside in his room, feeling a little bit better. No nausea. He was complaining of headache, Tylenol given. No fever. No chills. No hematuria. No hematochezia. No chest pain. No palpitation. PHYSICAL EXAMINATION: VITAL SIGNS: Temperature 99.3, pulse 79, respiratory rate 18, blood pressure 125/80. HEENT: Head: Normocephalic, atraumatic. Eyes: PERRLA. Extraocular muscles intact. Conjunctivae clear. Nose: Patent. Mucous membranes moist. NECK: Supple. No carotid bruits. No JVD or thyromegaly. CHEST: Bilaterally symmetrical. HEART: S1 and S2 positive. LUNGS: Clear to auscultation. ABDOMEN: Soft. Bowel sounds present. No organomegaly. EXTREMITIES: No edema. No cyanosis. NEUROLOGIC: The patient is awake, alert, moving all 4 extremities. No focal deficits. LABORATORY DATA: White blood cells 10.1, hemoglobin 13.9, hematocrit 41.1, platelets 227. Sodium 133, potassium 4.1, BUN 34, creatinine 6.5, glucose 81. ASSESSMENT AND PLAN: The patient is a 52-year-old male with renal insufficiency, came with abdominal pain, nausea, vomiting. Abdominal x-ray was done and shows no free air, but air-fluid levels. The patient found to have acute renal failure with creatinine level of 6 and acute flareup of ulcerative colitis. CT scan shows no bowel obstruction and other pathology. The patient went for ultrasound, renal. It showed unremarkable renal sonogram. Seen by María Raines, steam locomotive firer/fireman. Since patient has history of ulcerative colitis, peptic ulcer disease, severe anxiety syndrome, chronic lower back pain syndrome, osteoarthritis, recent hypercholesterolemia, LS spine herniated disk, status post appendectomy, status post diskectomy at L4-L5 vertebra, colonoscopy with removal of colon polyps done in 09/2015, upper endoscopy 10/31/2016. Now, patient came with exacerbation of ulcerative colitis. The patient has acute renal failure of unclear etiology. We will continue Zofran, proton pump inhibitors. Start him on clear liquid diet. We will do cancer marker, serum lipase and amylase levels; upper endoscopy followed by colonoscopy due to the patient's clinical presentation. Discussion done with the patient, appreciated Dr. Olu Hale's input. Seen by Dr. Cristiano Spencer, Nephrology. It looks like the patient has excessive vomiting and volume depletion causing renal insufficiency, hold lisinopril. We will see trend of BUN and creatinine. I did give Dilaudid for pain, gave IV fluid, ordered hepatis C antibody. We will follow up. Chayo Jamison MD
[2017-08-24] MEDS ORDERED: Propofol 10 mg/ml Inj (20 ML) ONE (09:59)
[2017-08-24] MEDS ORDERED: Midazolam 2 MG/2 ML VIAL ONE (09:59)
[2017-08-24] MEDS ORDERED: Lactated Ringer's 1,000 ML IV ONE ×2 (10:02)
[2017-08-24] MEDS ORDERED: Sodium Chloride 0.9% 1,000 ML IV SCH (13:00)
[2017-08-24] MEDS ORDERED: Sodium Chloride 0.45% 1,000 ML IV SCH (13:15)
[2017-08-24 17:01] VITALS: BP 169/94; PULSE 48; RESP 20; TEMP 99.3; O2SAT 98
--- NOTE | 2017-08-24 17:47 | CP.PCM.PN ---
Subjective - Date & Time of Evaluation Date of Evaluation: 08/24/17 Time of Evaluation: 13:00 - Subjective Subjective: Patient s/p colonoscopy today, now starting to eat solid food; no nausea/ vomiting; Objective - Vital Signs/Intake and Output Vital Signs (last 24 hours): Temp Pulse Resp BP Pulse Ox 99.3 F 48 L 20 169/94 H 98 08/24/17 16:00 08/24/17 16:00 08/24/17 16:00 08/24/17 16:00 08/24/17 16:00 Intake and Output: 08/24/17 08/24/17 06:59 18:59 Intake Total 1480 900 Output Total 800 Balance 1480 100 - Medications Medications: Current Medications Acetaminophen (Tylenol 325mg Tab) 650 mg PO Q6 PRN PRN Reason: Headache Last Admin: 08/21/17 12:12 Dose: 650 mg Dicyclomine HCl (Bentyl) 10 mg PO QID [facility] Last Admin: 08/24/17 14:03 Dose: 10 mg Hydromorphone HCl (Dilaudid) 0.5 mg IVP Q6H PRN PRN Reason: Pain, severe (8-10) Last Admin: 08/24/17 14:10 Dose: 0.5 mg Dextrose (Dextrose 5% In Water) 500 mls @ 50 mls/hr IV .Q10H [facility] Stop: 08/25/17 03:44 Lisinopril (Zestril) 10 mg PO DAILY [facility] Ondansetron HCl (Zofran Inj) 4 mg IVP Q6H PRN PRN Reason: Nausea/Vomiting Last Admin: 08/21/17 12:12 Dose: 4 mg - Labs Labs: 08/24/17 07:08 08/24/17 07:08 PT 12.5 SECONDS (9.7-12.2) H 08/21/17 17:11 INR 1.1 08/21/17 17:11 APTT 28 SECONDS (21-34) 08/21/17 17:11 - Constitutional Appears: Well, No Acute Distress - Eye Exam Eye Exam: absent: Scleral icterus - ENT Exam ENT Exam: Mucous Membranes Moist - Respiratory Exam Respiratory Exam: Clear to Ausculation Bilateral. absent: Respiratory Distress - Cardiovascular Exam Cardiovascular Exam: RRR, +S1, +S2 - GI/Abdominal Exam GI & Abdominal Exam: Soft. absent: Distended, Tenderness - Exam Exam: absent: Bladder Distension - Extremities Exam Additional comments: no leg edema - Neurological Exam Neurological Exam: Alert, Awake - Psychiatric Exam Psychiatric exam: Normal Mood. absent: Agitated - Skin Skin Exam: Warm. absent: Cyanosis Assessment and Plan (1) Acute kidney injury Assessment & Plan: Acute renal failure, resolving; likely had some component of ATN in addition to pre-renal etiology; mild hypernatremia, patient encouraged to drink more free water and eat well; otherwise is stable for d/c home; should have chem panel done in 1-2 weeks looking for full resolution; Status: Acute (2) HTN (hypertension) Assessment & Plan: BP elevated today, likely from volume excess due to IVF; will restart lisnopril 10 mg daily; Status: Acute (3) History of hepatitis C Assessment & Plan: Will f/u results of viral load testing as outpatient; Status: Chronic (4) Back pain Assessment & Plan: Counseled to avoid extensive NSAID use; Status: Chronic
== END 2017-08-24 19:00 | disposition home or self-care (01) | DRG 683 ==
LOC: C.ER 16:24 → C.9E 23:43 → C.3T 08-21 01:44
PROVIDERS: ADMIT Internal Medicine; ATTEND Internal Medicine
PROC: 0DJ08ZZ Inspection of Upper Intestinal Tract, Via Natural or Artificial Opening Endoscopic (ICD-10-PCS; principal; 2017-08-22 09:36)
PROC: 0DB68ZX Excision of Stomach, Via Natural or Artificial Opening Endoscopic, Diagnostic (ICD-10-PCS; 2017-08-23 09:40)
PROC: 0DBM8ZX Excision of Descending Colon, Via Natural or Artificial Opening Endoscopic, Diagnostic (ICD-10-PCS; 2017-08-24)
DX: N17.9 Acute kidney failure, unspecified (principal); K92.0 Hematemesis; K58.9 Irritable bowel syndrome, unspecified; Z87.11 Personal history of peptic ulcer disease; Z86.010 Personal history of colon polyps; E78.00 Pure hypercholesterolemia, unspecified; M54.5 Low back pain; F41.9 Anxiety disorder, unspecified; I10 Essential (primary) hypertension; Z82.49 Family history of ischemic heart disease and other diseases of the circulatory system; E86.9 Volume depletion, unspecified; Z86.19 Personal history of other infectious and parasitic diseases; K21.0 Gastro-esophageal reflux disease with esophagitis; F41.8 Other specified anxiety disorders; G89.4 Chronic pain syndrome; E78.5 Hyperlipidemia, unspecified; M19.90 Unspecified osteoarthritis, unspecified site; R79.89 Other specified abnormal findings of blood chemistry; K44.9 Diaphragmatic hernia without obstruction or gangrene; K31.84 Gastroparesis; K29.00 Acute gastritis without bleeding; D50.9 Iron deficiency anemia, unspecified; K64.4 Residual hemorrhoidal skin tags; K64.8 Other hemorrhoids

== ENCOUNTER 2017-09-04 16:01 | Day surgery (SDC) | payer MEDICARE, OTHER ==
[2017-09-04] MEDS ORDERED: Lidocaine Hydrochloride 5 ML INJ ONE (16:06)
[2017-09-04] MEDS ORDERED: Propofol 10 mg/ml Inj (20 ML) ONE (16:56)
[2017-09-04 18:13] VITALS: BP 119/78; PULSE 98; RESP 17; TEMP 97.6; O2SAT 97
--- NOTE | 2017-09-04 21:37 | OP ---
PROCEDURE DATE: 09/04/2017 SURGEON: NAKUL UREÑA MD OPERATIVE PROCEDURE: Lumbosacral epidural steroid injection, transforaminal approach with fluoroscopic guidance. INJECTATE: A total of 5.0 cc; consisting of 2.5 cc of Kenalog (40 mg/cc), with the remainder of saline. APPROACH: Transforaminal approach. FINDINGS: Flow of contrast was excellent along the right L5 and S1 nerve roots and into the epidural space. PROCEDURE: The patient was prepped and draped in a sterile fashion in the prone position after informed consent was signed and all the patient's questions were answered including the risks, benefits, alternative treatment options, and prognosis. The risks include but are not limited to infection, allergic reaction, increased pain, lack of therapeutic benefit, steroid reaction, nerve damage, paralysis, stroke, epidural hematoma, syncope, headache, respiratory or cardiac arrest, and scar formation. The C-arm was positioned so that an oblique view of the foramen as noted above was visualized. The soft tissues overlying this structure were infiltrated with 2-3 cc of 1% lidocaine without epinephrine. A 22-gauge spinal needle was inserted toward the target using a "trajectory" view along the fluoroscope beam. Under AP and lateral visualization, the needle was advanced so it did not puncture dura. Biplanar projections were used to confirm position. Aspiration was confirmed to be negative for CSF and/or blood. A 1 to 2 cc volume of Omnipaque-300 was injected and flow of contrast was noted at each level. Radiographs were obtained for documentation purposes. After attaining flow of contrast documented above, a 1 cc test dose of 1% lidocaine was injected into each respective transforaminal space. The patient was observed for 90 seconds post injection. After no sensory deficits were reported, and normal lower extremity motor function was noted, the above injectate was administered so that equal amounts of the injectate were placed at each foramen into the transforaminal epidural space. The patient tolerated the procedure well and was discharged after an appropriate period of observation. If there are any complications, the patient was instructed to call us. The patient is to follow up with the requesting physician within one to two weeks. Nakul Ureña MD
== END 2017-09-04 18:13 | disposition home or self-care (01) ==
LOC: C.SDS 16:01
PROVIDERS: ATTEND Neuromusculoskeletal Medicine, Sports Medicine
DX: M51.27 Other intervertebral disc displacement, lumbosacral region (principal)
CPT/HCPCS: 64483; J1100; J2704

== ENCOUNTER 2017-12-11 12:07 | Day surgery (SDC) | payer MEDICARE ==
[2017-12-11] MEDS ORDERED: Sodium Chloride 0.9% 20 ML IV ONE (13:41)
[2017-12-11] MEDS ORDERED: Bupivacaine 0.75% Inj(30mL) ONE (13:42)
[2017-12-11] MEDS ORDERED: Iohexol 240 (50 ml) ONE (13:42)
[2017-12-11] MEDS ORDERED: Lidocaine 2% MPF (5 ml) Inj ONE (13:43)
[2017-12-11] MEDS ORDERED: Propofol 10 mg/ml Inj (20 ML) ONE (14:09)
[2017-12-11 14:47] VITALS: O2SAT 95
[2017-12-11 15:16] VITALS: BP 144/91; PULSE 98; RESP 20; TEMP 98.7
--- NOTE | 2017-12-12 04:20 | OP ---
Copied To: Henry Denis MD Attending MD: Henry Denis MD PROCEDURE DATE: 12/11/2017 INJECTATE: A total of 5 mL; consisting of 2 mL of dexamethasone (10 mg/mL), with the remainder of 0.25% Marcaine. LEVELS INJECTED: Bilateral L4-S1 medial branches. APPROACH: Posterior extradural. COMMENTS: N/A. FINDINGS: No vascular uptake noted on use of contrast. PROCEDURE: The history and physical were reviewed. History and neuromuscular physical examination findings within 30 days were reviewed and confirmed. The patient was actively involved throughout the procedure. Allergies to medications and contrast dye were reviewed and a medication reconciliation review was performed as well. The patient was prepped and draped in a sterile fashion in the prone position after informed consent was read again to the patient and signed and questions if any were answered including the risks, benefits, alternative treatment options, and prognosis. The C-arm was positioned so that the anatomic regions corresponding to the medial branches as noted above were visualized. The soft tissues overlying this structure were infiltrated with 2 to 3 mL of 1% lidocaine without epinephrine. A 22-gauge spinal needle was inserted toward the targets using "trajectory" views along the fluoroscope beam. Under AP and lateral visualization, each needle was advanced to the appropriate location. Biplanar projections were used to confirm position. Aspiration was confirmed to be negative for CSF and/or blood. Radiographs were obtained for documentation purposes. Omnipaque-300 contrast was used to assess for vascular uptake and after no abnormal flow was detected, a 1 mL test dose of 1% lidocaine was injected. The patient was observed for 90 seconds post injection. After no sensory deficits were reported, and normal extremity motor function was noted, the above injectate was administered so that equal amounts of the injectate were placed at each level. The patient tolerated the procedure well and was sent to recovery room. The patient was discharged after an appropriate period of observation. Discharge instructions were given. If there are any complications, the patient was instructed to call us. The patient is to follow up with the requesting physician within one to two weeks to discuss candidacy for RFA. Improvement after today's procedure: The patient reported subjective improvement in lower back pain, but no improvement in groin pain immediately post procedure. Ariz MD Adeel [facility] # [phone]
--- NOTE | 2017-12-12 09:23 | RAD ---
Date of service: 12/11/2017 PROCEDURE: Intraoperative Fluoroscopy. HISTORY: LUMBAR SPONDYLOSIS FINDINGS: Fluoroscopic assistance was provided for bilateral L4 and L5 facet injections. Please refer to the operative report from NAKUL Delarosa, , MD [facility].
== END 2017-12-11 15:15 | disposition home or self-care (01) ==
LOC: C.SDS 12:07
PROVIDERS: ATTEND Neuromusculoskeletal Medicine, Sports Medicine
DX: M47.817 Spondylosis without myelopathy or radiculopathy, lumbosacral region (principal)
CPT/HCPCS: 62323; J1100; J2704; Q9966

== ENCOUNTER 2018-02-26 13:10 | Day surgery (SDC) | payer MEDICARE, OTHER ==
[2018-02-26] MEDS ORDERED: Iohexol 240 (50 ml) ONE (16:05)
[2018-02-26] MEDS ORDERED: Lidocaine Hydrochloride 5 ML INJ ONE (16:05)
[2018-02-26] MEDS ORDERED: Bupivacaine HCl 0.5% PF (30 ml) Inj ONE (16:05)
[2018-02-26] MEDS ORDERED: Midazolam 2 MG/2 ML VIAL ONE (16:45)
[2018-02-26] MEDS ORDERED: Propofol 10 mg/ml Inj (20 ML) ONE (16:47)
--- NOTE | 2018-02-26 17:37 | RAD ---
Date of service: 02/26/2018 PROCEDURE: Intraoperative Fluoroscopy. HISTORY: LUMBAR STENOSIS FINDINGS: Fluoroscopic assistance was provided. Fluoroscopy time = 59.0 sec. Radiation dose = 5.88 mGy-. Please refer to the operative report from NAKUL Delarosa, , MD [facility].
[2018-02-26 18:55] VITALS: RESP 18; O2SAT 99
[2018-02-26 18:59] VITALS: BP 100/75; PULSE 80; TEMP 97.7
--- NOTE | 2018-02-27 04:12 | OP ---
PROCEDURE DATE: 02/26/2018 INJECTATE: A total of 5 mL; consisting of 2 mL of dexamethasone (10 mg/mL), with the remainder of 0.25% Marcaine. LEVELS INJECTED: Bilateral L4-S1 medial branches. APPROACH: Posterior extradural. COMMENTS: N/A. FINDINGS: No vascular uptake noted on use of contrast. PROCEDURE: The history and physical were reviewed. History and neuromuscular physical examination findings within 30 days were reviewed and confirmed. The patient was actively involved throughout the procedure. Allergies to medications and contrast dye were reviewed and a medication reconciliation review was performed as well. The patient was prepped and draped in a sterile fashion in the prone position after informed consent was read again to the patient and signed and questions if any were answered including the risks, benefits, alternative treatment options, and prognosis. The C-arm was positioned so that the anatomic regions corresponding to the medial branches as noted above were visualized. The soft tissues overlying this structure were infiltrated with 2 to 3 mL of 1% lidocaine without epinephrine. A 22-gauge spinal needle was inserted toward the targets using "trajectory" views along the fluoroscope beam. Under AP and lateral visualization, each needle was advanced to the appropriate location. Biplanar projections were used to confirm position. Aspiration was confirmed to be negative for CSF and/or blood. Radiographs were obtained for documentation purposes. Omnipaque-300 contrast was used to assess for vascular uptake and after no abnormal flow was detected, a 1 mL test dose of 1% lidocaine was injected. The patient was observed for 90 seconds post injection. After no sensory deficits were reported, and normal extremity motor function was noted, the above injectate was administered so that equal amounts of the injectate were placed at each level. The patient tolerated the procedure well and was sent to recover room. The patient was discharged after an appropriate period of observation. Discharge instructions were given. If there are any complications, the patient was instructed to call us. The patient is to follow up with the requesting physician within one to two weeks to discuss candidacy for RFA. Improvement after today's procedure: The patient reported subjective improvement in lower back pain, but no improvement in groin pain immediately post procedure. Ariz MD Adeel
== END 2018-02-26 18:35 | disposition home or self-care (01) ==
LOC: C.SDS 13:10
PROVIDERS: ATTEND Neuromusculoskeletal Medicine, Sports Medicine
DX: M47.817 Spondylosis without myelopathy or radiculopathy, lumbosacral region (principal); I10 Essential (primary) hypertension; E78.5 Hyperlipidemia, unspecified; M19.90 Unspecified osteoarthritis, unspecified site; K21.9 Gastro-esophageal reflux disease without esophagitis; F41.9 Anxiety disorder, unspecified
CPT/HCPCS: 64493; 64494; J1100; J2250; J2704; J3010; Q9966

== ENCOUNTER 2018-05-02 15:17 | Inpatient (IN) | payer MEDICARE, OTHER | END 2018-05-06 12:45 | disposition home or self-care (01) | LOC: C.ER 15:17 → C.7D 19:24 ==

== ENCOUNTER 2018-06-27 11:36 | Outpatient (CLI) | payer MEDICARE, OTHER | END 2018-06-27 11:37 | disposition home or self-care (01) | LOC: C.LAB 11:36 | DX: I10 Essential (primary) hypertension (principal); F32.9 Major depressive disorder, single episode, unspecified; N18.3 Chronic kidney disease, stage 3 (moderate); E66.09 Other obesity due to excess calories; Z68.31 Body mass index [BMI] 31.0-31.9, adult ==

== ENCOUNTER 2018-07-09 14:30 | Outpatient (CLI) | payer MEDICARE | END 2018-07-09 14:31 | disposition home or self-care (01) | LOC: C.LAB 14:30 | DX: M48.061 Spinal stenosis, lumbar region without neurogenic claudication (principal) ==

== ENCOUNTER 2018-07-15 12:25 | Outpatient (CLI) | payer MEDICARE | END 2018-07-15 12:26 | disposition home or self-care (01) | LOC: C.LAB 12:25 | DX: R74.0 Nonspecific elevation of levels of transaminase and lactic acid dehydrogenase [LDH] (principal) ==